=== PATIENT | male | born 1940 | race Caucasian/White ===

== ENCOUNTER 2017-05-03 13:00 | Inpatient (IN) | payer MEDICARE, BC ==
[~2017-05-03] VITALS: Ht 177.8 cm; Wt 45.8 kg
[2017-05-03 18:39] VITALS: BP 112/67
[2017-05-03] MEDS ORDERED: ACETAMINOPHEN 325 MG TABLET PO PRN (19:45)
[2017-05-03] MEDS ORDERED: HYDROcodone/APAP 5/325MG 1 TAB TABLET PO PRN (19:45)
[2017-05-03] MEDS ORDERED: AMIO200T2 PO (19:56)
[2017-05-03] MEDS ORDERED: BUDE10.2 IH (19:56)
[2017-05-03] MEDS ORDERED: METO25TA4 PO (19:56)
[2017-05-03] MEDS ORDERED: ASPI-630 PO (19:56)
[2017-05-03] MEDS ORDERED: TAMS0.4C2 PO (19:56)
[2017-05-03] MEDS ORDERED: GUAI600T47 PO (19:56)
[2017-05-03] MEDS ORDERED: WARF4TAB7 PO (19:56)
[2017-05-03] MEDS ORDERED: ATOR40TA59 PO (19:56)
[2017-05-03] MEDS ORDERED: ACET325T9 PO (19:56)
[2017-05-03] MEDS ORDERED: FINA5TAB4 PO (19:56)
[2017-05-03] MEDS ORDERED: ALBU0.63 NEB (19:56)
[2017-05-03] MEDS ORDERED: HYDR-2758 PO (19:56)
[2017-05-03] MEDS ORDERED: CIPR500S2 PO (19:56)
[2017-05-03] MEDS ORDERED: ALBUTEROL SULFATE 2.5 MG/3 ML NEBU. NEB PRN (20:15)
[2017-05-03] MEDS ORDERED: ATORVASTATIN CALCIUM 20 MG TABLET PO SCH (21:00)
[2017-05-03] MEDS ORDERED: NON FORMULARY ITEM (Albuterol Sulfate (Albuterol Sulfate Neb Soln) 1 VIAL) NEB SCH (21:00)
[2017-05-03] MEDS ORDERED: WARFARIN 4 MG TABLET. PO SCH (21:00)
[2017-05-03] MEDS ORDERED: NON FORMULARY ITEM (Budesonide/Formoterol Fumarate (Symbicort 160-4.5 Mcg Inhaler) 2 PUFF) IH SCH (21:00)
[2017-05-03] MEDS: METOPROLOL TART IMMED RELEASE 25 MG TABLET PO SCH (21:07)
[2017-05-03] MEDS: CIPROFLOXACIN HCL 500 MG TABLET PO SCH (21:07)
[2017-05-03 22:47] VITALS: BP 112/67
[2017-05-04] MEDS: ALBUTEROL SULFATE 2.5 MG/3 ML NEBU. NEB SCH ×3 (05:44→15:32)
[2017-05-04 05:52] VITALS: BP 104/62
[2017-05-04 06:35] LABS: BASO # 0.2 x10^3/uL (0.0-0.2); BASO % 1 % (0-3); EOS # 0.6 x10^3/uL (0.0-0.7); EOS % 4 % (0-3); HEMOGLOBIN 9.7 g/dL (13.0-17.5); LYMPH # 1.2 x10^3/uL (1.0-4.8); LYMPH % 7 % (24-48); MEAN CORPUSCULAR HEMOGLOBIN 30 pg (25-35); MEAN CORPUSCULAR HGB CONC 33 g/dL (31-37); MEAN CORPUSCULAR VOLUME 90 fL (79-100); MONO % 6 % (0-9); NEUT # 13.4 x10^3uL (1.8-7.7); NEUT % 82 % (31-73); PLATELET COUNT 394 x10^3/uL (140-400); RED CELL DISTRIBUTION WIDTH 15.5 % (11.5-14.5); WHITE BLOOD COUNT 16.5 x10^3/uL (4.0-11.0)
[2017-05-04 06:39] LABS: ALBUMIN 3.1 g/dL (3.4-5.0); ALBUMIN/GLOBULIN RATIO 0.9 (1.0-1.7); CALCIUM 9.6 mg/dL (8.5-10.1); CREATININE 1.3 mg/dL (0.7-1.3); POTASSIUM 3.4 mmol/L (3.5-5.1); TOTAL BILIRUBIN 0.5 mg/dL (0.2-1.0); TOTAL PROTEIN 6.5 g/dL (6.4-8.2)
[2017-05-04] MEDS ORDERED: BUDESONIDE 0.5 MG/2 ML NEBU NEB SCH (08:00)
[2017-05-04] MEDS ORDERED: ASPIRIN 81 MG TAB.CHEW PO SCH (09:00)
[2017-05-04] MEDS ORDERED: TAMSULOSIN 0.4 MG CAP.ER.24H. PO SCH (09:00)
[2017-05-04] MEDS ORDERED: AMIODARONE HCL 200 MG TABLET PO SCH (09:00)
[2017-05-04] MEDS ORDERED: FINASTERIDE 5 MG TABLET PO SCH (09:00)
[2017-05-04] MEDS: CIPROFLOXACIN HCL 500 MG TABLET PO SCH (09:06)
[2017-05-04] MEDS: METOPROLOL TART IMMED RELEASE 25 MG TABLET PO SCH (09:08)
[2017-05-04] MEDS ORDERED: IV NORMAL SALINE 1,000ML 1,000 ML IV SCH (14:30)
[2017-05-04] MEDS ORDERED: IV NORMAL SALINE 500ML 500 ML IV ONE (14:30)
[2017-05-04 15:32] VITALS: BP 115/52
[2017-05-04] MEDS ORDERED: WARFARIN 5 MG TABLET. PO SCH (16:00)
--- NOTE | 2017-05-04 17:20 | HP ---
ADMIT DATE: 05/04/2017 HISTORY OF PRESENT ILLNESS: The patient is a 76-year-old male patient, who apparently underwent 5-vessel coronary artery bypass graft surgery on 04/18/2017 at [facility]. His postoperative course was complicated by acute on chronic respiratory distress that required intubation. On 04/22/2017 bronchoscopy indicated right lower lobe bronchoalveolar lavage that grew pseudomonas and was treated for that with Zosyn. He also developed postoperative paroxysmal atrial fibrillation with acute diastolic left ventricular failure, requiring inotropes. The patient was extubated on 04/24/2017. He was transferred back to the floor on 04/26/2017. He finally passed the swallow evaluation. He was started on dysphagia 2 diet with thin liquids. He continued to complain of shortness of breath on exertion and he also has poor appetite and he was losing weight prior to this admission. When I saw him today, he was resting, slightly propped up in bed, clinically very dehydrated. He is also known to have benign prostatic hypertrophy with urinary retention, requiring indwelling Bowen catheter. PAST MEDICAL HISTORY: Significant for benign prostatic hypertrophy, chronic obstructive pulmonary disease, coronary artery disease involving his [place] coronary arteries with status post 5-vessel coronary artery bypass graft surgery. He is a lifelong smoker and quit before his most recent surgery. He has elevated PSA, essential hypertension, malnutrition, mixed hyperlipidemia, supraventricular tachycardia and tobacco abuse disorder. PAST SURGICAL HISTORY: Significant for coronary angiography with PCI, coronary artery bypass graft surgery. He has bilateral cataract extraction, multiple tooth extraction, prostate biopsy, and tympanostomy on the left side. FAMILY HISTORY: His father had Hodgkin's disease. Mother has coronary artery disease. Brother has diabetes. SOCIAL HISTORY: He is . Currently everyday smoker, he smokes half a pack a day and smoked for years. He never used smokeless tobacco. He does not drink alcohol or use any recreational drugs. ALLERGIES: He has no known drug allergies. MEDICATIONS: He is currently on following medications: Acetaminophen 650 mg every 4 hours, albuterol sulfate 0.63 mg in 3 mL by nebulizer 4 times a day, amiodarone 200 mg once a day, aspirin 81 mg once a day, atorvastatin calcium 40 mg at bedtime. He is on Symbicort 160/4.5 mcg inhaler 2 puffs twice a day, ciprofloxacin 500 mg twice a day, finasteride 5 mg once a day, guaifenesin for Mucinex 600 mg twice a day, hydrocodone/APAP 5/325 one tablet every 4 hours, metoprolol 25 mg twice a day, Flomax 0.4 mg at bedtime and warfarin 4 mg at bedtime. PHYSICAL EXAMINATION: GENERAL: When I examined him this afternoon, he was resting, slightly propped up in bed, in no apparent respiratory distress. He is pale, extremely cachectic, but not jaundiced or cyanosis. No lymphadenopathy, no thyromegaly, no jugular venous distention, no limb edema. VITAL SIGNS: His heart rate was 70, blood pressure was 104/62, temperature was 98.3, respiratory rate 20, and oxygen saturation was 97% on 2 liters of oxygen. HEAD, EYES, EARS, NOSE AND THROAT: Showed normocephalic, atraumatic. NECK: Supple. HEART: Showed normal first and second heart sounds with no gallop, rub or murmur. CHEST: Showed central trachea, equally reduced expansion, reduced air entry, vesicular breath sounds. No crepitation or rhonchi. ABDOMEN: Scaphoid, soft, nontender. No guarding or rigidity. No organomegaly. All hernial orifices intact. Bowel sounds normal. NEUROLOGIC: He was awake, alert, responding appropriately. All cranial nerves intact. EXTREMITIES: He moves extremities without difficulty, has marked muscle wasting and weakness. SKIN: Showed the surgical incision. The midline sternotomy scar is healing nicely with no redness, tenderness or discharge. The sites of vein harvest from the left lower extremity is healing nicely; however, multiple bruises on the medial aspect of left leg. His intake over the last 24 hours was 530, output was 600. LABORATORY DATA: His lab work this morning showed a white cell count of 16,500, hemoglobin 9.7, hematocrit 29, MCV 90 and platelet count of 394,000 with manual differential showed 82% polymorphs, 7% lymphocytes, 6% monocytes. His serum sodium was 141, potassium 3.4, chloride 103, bicarbonate 33, anion gap of 5, BUN 67, creatinine 1.3, estimated GFR was 54 mL per minute. His glucose was 109, calcium was 9.6. Total bilirubin, AST, ALT, alkaline phosphatase were normal. His total protein was 6.5, albumin 3.1. His prothrombin time was 19.9, INR of 1.9. SUMMARY: This is a 76-year-old male patient with known coronary artery disease for which he underwent 5-vessel coronary artery bypass graft surgery on 04/18/2017. His postoperative course was complicated by acute on chronic respiratory failure, requiring intubation bronchoalveolar lavage showed growth of Pseudomonas, treated with IV Zosyn. He has multiple other medical problems including benign prostatic hypertrophy for which he has an indwelling Bowen catheter. Chronic obstructive pulmonary disease for which he is now on oxygen. He has hypertension, mixed hyperlipidemia and malnutrition. In fact, his serum albumin is only 3.1. Comparing his labs, the patient definitely has extremely dehydrated. His BUN on 04/27/2017 was 40 and creatinine 0.6 and has risen to 67 and 1.3 respectively. His white cell count was normal at 9400 and now it is 16.5. He is both clinically and biochemically, definitely dehydrated. PLAN: My plan is to arrange for him to have a chest x-ray and will start to rehydrate him gently and we will monitor his labs closely. His INR is subtherapeutic, so I will increase his Coumadin to 5 mg and we will monitor his progress on a daily basis. Meanwhile, we will continue with physical and occupational therapy. REBECA BRAGA MD DR: MARS/radhika JOB#: [id number] / [id number]
--- NOTE | 2017-05-04 17:20 | RAD ---
AP portable chest radiograph 05/04/2017 Clinical history: Dyspnea on exertion. An AP portable digital radiograph of the chest was obtained. No previous studies are available for comparison. Patient status post CABG procedure. Cardiac silhouette is normal in size. The thoracic aorta is tortuous. Atherosclerotic calcification of the thoracic aorta is seen. Emphysematous changes are seen involving both longs. An area of probable scarring is seen along the right lower lobe. No area of consolidation is seen. No pneumothorax or pleural effusion is noted. There is diffuse osteopenia the visualized bony structures. Degenerative changes are seen along the thoracic spine. Impression: Emphysematous changes. No area of consolidation is seen.
--- NOTE | 2017-05-05 20:39 | PN ---
DATE: SUBJECTIVE: The patient is sitting comfortably in his recliner in no apparent distress. He is awake, alert and definitely looks better, has participated with physical and occupational therapy, had a shower, ate 100% his breakfast this morning. OBJECTIVE: GENERAL: On examining him, he looked somewhat pale, cachectic, but no jaundice, cyanosis, or thyromegaly. No jugular venous distention. No limb edema. VITAL SIGNS: His heart rate was 64, blood pressure 115/52, temperature was 98.1, respiratory rate was 24 and oxygen saturation was 96% on 2 L of oxygen by nasal cannula. HEAD, EYES, EARS, NOSE AND THROAT: Showed normocephalic, atraumatic. NECK: Supple. HEART: Showed normal first and second heart sounds with no gallop, rub or murmur. CHEST: Clear to auscultation. No crepitation or rhonchi. ABDOMEN: Scaphoid, soft, nontender. No guarding or rigidity. No organomegaly. Hernial orifices intact. Bowel sounds normal. NEUROLOGIC: He was definitely more awake, alert. All his cranial nerves are intact. He moves extremities without difficulty. He ambulates with a walker. His intake over the last 24 hours was 530, output was 600. LABORATORY DATA: This morning showed his white cell count was 12,500; hemoglobin 8.7; hematocrit 26; MCV 91; platelet count 343,000. Serum sodium was 143, potassium 4.1, chloride 109, bicarbonate 30, anion gap of 4, BUN 56, creatinine 1.1, estimated GFR was 65 mL per minute. His glucose was 98, calcium was 8.8. Total bilirubin and alkaline phosphatase normal. AST and ALT slightly elevated. His beta natriuretic peptide was 2424. Total protein was 5.6, albumin 2.6. His prothrombin time is 17.8. INR 1.7. ASSESSMENT: 1. Coronary artery disease involving [place] artery, status post 5-vessel coronary artery bypass graft. 2. Chronic obstructive pulmonary disease. 3. Benign prostatic hypertrophy. 4. Essential hypertension. 5. Mixed hyperlipidemia. 6. Tobacco abuse disorder. 7. Acute kidney injury. PLAN: My plan is to continue with IV fluid, continue with physical and occupational therapy. His prothrombin time and INR are subtherapeutic, we will adjust his Coumadin and we will decide on further management accordingly. REBECA BRAGA MD DR: Venita JOB#: [id number] / [id number]
== END 2017-05-04 16:05 | disposition short-term general hospital (02) | DRG 683 ==
LOC: LND 17:30
PROVIDERS: ADMIT Internal Medicine; ATTEND Internal Medicine
DX: N17.9 Acute kidney failure, unspecified (principal); E46 Unspecified protein-calorie malnutrition; J96.10 Chronic respiratory failure, unspecified whether with hypoxia or hypercapnia; I48.0 Paroxysmal atrial fibrillation; J44.9 Chronic obstructive pulmonary disease, unspecified; I50.30 Unspecified diastolic (congestive) heart failure; I11.0 Hypertensive heart disease with heart failure; E78.2 Mixed hyperlipidemia; Z68.1 Body mass index [BMI] 19.9 or less, adult; E86.0 Dehydration; F17.210 Nicotine dependence, cigarettes, uncomplicated; I25.10 Atherosclerotic heart disease of native coronary artery without angina pectoris; N40.1 Benign prostatic hyperplasia with lower urinary tract symptoms; R33.8 Other retention of urine; Z80.7 Family history of other malignant neoplasms of lymphoid, hematopoietic and related tissues; Z82.49 Family history of ischemic heart disease and other diseases of the circulatory system; Z83.3 Family history of diabetes mellitus; Z95.1 Presence of aortocoronary bypass graft; Z98.41 Cataract extraction status, right eye; Z98.42 Cataract extraction status, left eye
CPT/HCPCS: 36415; 71010; 80053; 85025; 85610; 94640; 94760; J7613; J7626; 97535

== ENCOUNTER 2017-05-04 16:06 | Inpatient (IN) | payer MEDICARE, BC ==
[~2017-05-04] VITALS: Ht 177.8 cm; Wt 50.5 kg
[2017-05-04 15:30] VITALS: BP 115/52
[~2017-05-04 16:06] MED LIST: ACET325T9 PO; ALBU0.63 NEB; AMIO200T2 PO; ASPI-630 PO; ATOR40TA59 PO; BUDE10.2 IH; CIPR500S2 PO; FINA5TAB4 PO; GUAI600T47 PO; HYDR-2758 PO; METO25TA4 PO; TAMS0.4C2 PO; WARF4TAB7 PO
[2017-05-04] MEDS ORDERED: IV NORMAL SALINE 500ML 500 ML IV ONE (16:20)
[2017-05-04] MEDS ORDERED: ACETAMINOPHEN 325 MG TABLET PO PRN (17:15)
[2017-05-04] MEDS ORDERED: HYDROcodone/APAP 5/325MG 1 TAB TABLET PO PRN (17:15)
[2017-05-04] MEDS ORDERED: ALBUTEROL SULFATE 2.5 MG/3 ML NEBU. NEB PRN (17:15)
[2017-05-04] MEDS ORDERED: WARFARIN 5 MG TABLET. PO SCH (18:15)
[2017-05-04] MEDS: IV NORMAL SALINE 1,000ML 1,000 ML IV SCH (18:22)
[2017-05-04 18:33] VITALS: BP 137/56
[2017-05-04] MEDS ORDERED: POTASSIUM CHLORIDE 20 MEQ TABLET.ER. PO ONE (19:15)
[2017-05-04 20:25] VITALS: BP 130/54
[2017-05-04] MEDS: METOPROLOL TART IMMED RELEASE 25 MG TABLET PO SCH (20:25)
[2017-05-04] MEDS: ATORVASTATIN CALCIUM 20 MG TABLET PO SCH (20:25)
[2017-05-04] MEDS: CIPROFLOXACIN HCL 500 MG TABLET PO SCH (20:25)
[2017-05-04] MEDS ORDERED: NON FORMULARY ITEM (Budesonide/Formoterol Fumarate (Symbicort 160-4.5 Mcg Inhaler) 2 PUFF) IH SCH (21:00)
[2017-05-04] MEDS ORDERED: NON FORMULARY ITEM (Albuterol Sulfate (Albuterol Sulfate Neb Soln) 1 VIAL) NEB SCH (21:00)
[2017-05-04] MEDS: BUDESONIDE 0.5 MG/2 ML NEBU NEB SCH (22:03)
[2017-05-04] MEDS: ALBUTEROL SULFATE 2.5 MG/3 ML NEBU. NEB SCH (22:03)
[2017-05-04 23:15] VITALS: BP 112/50
[2017-05-05 03:30] VITALS: BP 123/52
[2017-05-05] MEDS: IV NORMAL SALINE 1,000ML 1,000 ML IV SCH ×2 (05:39→18:18)
[2017-05-05 05:43] VITALS: BP 127/52
[2017-05-05] MEDS: ALBUTEROL SULFATE 2.5 MG/3 ML NEBU. NEB SCH ×4 (05:57→20:31)
[2017-05-05 06:42] LABS: HEMOGLOBIN 8.7 g/dL (13.0-17.5); RED BLOOD COUNT 2.85 x10^6/uL (4.30-5.70); RED CELL DISTRIBUTION WIDTH 15.9 % (11.5-14.5); WHITE BLOOD COUNT 12.5 x10^3/uL (4.0-11.0)
[2017-05-05 06:46] LABS: ALBUMIN 2.6 g/dL (3.4-5.0); ALBUMIN/GLOBULIN RATIO 0.9 (1.0-1.7); C REACTIVE PROTEIN 5.8 mg/L (0-3.3); CALCIUM 8.8 mg/dL (8.5-10.1); CREATININE 1.1 mg/dL (0.7-1.3); GFR 65.4; POTASSIUM 4.1 mmol/L (3.5-5.1); TOTAL BILIRUBIN 0.3 mg/dL (0.2-1.0); TOTAL PROTEIN 5.6 g/dL (6.4-8.2)
[2017-05-05] MEDS: CIPROFLOXACIN HCL 500 MG TABLET PO SCH ×2 (08:26→20:34)
[2017-05-05] MEDS: ASPIRIN 81 MG TAB.CHEW PO SCH (08:26)
[2017-05-05] MEDS: METOPROLOL TART IMMED RELEASE 25 MG TABLET PO SCH ×2 (08:27→20:34)
[2017-05-05] MEDS: TAMSULOSIN 0.4 MG CAP.ER.24H. PO SCH (08:27)
[2017-05-05] MEDS: FINASTERIDE 5 MG TABLET PO SCH (08:27)
[2017-05-05] MEDS: AMIODARONE HCL 200 MG TABLET PO SCH (08:27)
[2017-05-05] MEDS ORDERED: TAMSULOSIN 0.4 MG CAP.ER.24H. PO SCH (09:00)
[2017-05-05 11:02] VITALS: BP 116/56
[2017-05-05] MEDS: BUDESONIDE 0.5 MG/2 ML NEBU NEB SCH ×2 (11:04→20:31)
[2017-05-05 14:43] VITALS: BP 136/66
[2017-05-05] MEDS ORDERED: WARFARIN 5 MG TABLET. PO SCH (16:00)
[2017-05-05] MEDS: WARFARIN 6 MG TABLET. PO SCH (16:37)
[2017-05-05 18:40] VITALS: BP 124/63
[2017-05-05] MEDS: ATORVASTATIN CALCIUM 20 MG TABLET PO SCH (20:35)
[2017-05-05 22:45] VITALS: BP 114/54
[2017-05-06] MEDS: IV NORMAL SALINE 1,000ML 1,000 ML IV SCH (05:23)
[2017-05-06 05:35] VITALS: BP 135/62
[2017-05-06] MEDS: ALBUTEROL SULFATE 2.5 MG/3 ML NEBU. NEB SCH ×4 (05:36→21:05)
[2017-05-06 07:56] LABS: CALCIUM 8.5 mg/dL (8.5-10.1); CREATININE 0.9 mg/dL (0.7-1.3); GFR 82.5; MAGNESIUM 1.7 mg/dL (1.8-2.4)
[2017-05-06] MEDS: AMIODARONE HCL 200 MG TABLET PO SCH (08:22)
[2017-05-06] MEDS: TAMSULOSIN 0.4 MG CAP.ER.24H. PO SCH (08:22)
[2017-05-06] MEDS: CIPROFLOXACIN HCL 500 MG TABLET PO SCH ×2 (08:22→20:30)
[2017-05-06] MEDS: METOPROLOL TART IMMED RELEASE 25 MG TABLET PO SCH ×2 (08:23→20:30)
[2017-05-06] MEDS: FINASTERIDE 5 MG TABLET PO SCH (08:23)
[2017-05-06] MEDS: ASPIRIN 81 MG TAB.CHEW PO SCH (08:23)
[2017-05-06 09:59] LABS: FECAL OB PT POSITIVE (NEG)
[2017-05-06 11:11] VITALS: BP 102/44
[2017-05-06] MEDS ORDERED: BUDESONIDE 0.5 MG/2 ML NEBU ONE (11:38)
[2017-05-06] MEDS: BUDESONIDE 0.5 MG/2 ML NEBU NEB SCH ×2 (11:58→21:05)
[2017-05-06 12:07] VITALS: BP 116/58
[2017-05-06 15:00] LABS: HEMATOCRIT 26.5 % (39.0-53.0); HEMOGLOBIN 8.6 g/dL (13.0-17.5); RED BLOOD COUNT 2.87 x10^6/uL (4.30-5.70); RED CELL DISTRIBUTION WIDTH 16.4 % (11.5-14.5); WHITE BLOOD COUNT 11.3 x10^3/uL (4.0-11.0)
[2017-05-06 15:22] VITALS: BP 123/64
[2017-05-06] MEDS: WARFARIN 6 MG TABLET. PO SCH (16:40)
[2017-05-06 20:15] VITALS: BP 120/62
[2017-05-06] MEDS: ATORVASTATIN CALCIUM 20 MG TABLET PO SCH (20:30)
[2017-05-06 23:04] VITALS: BP 137/68
[2017-05-07] MEDS: ALBUTEROL SULFATE 2.5 MG/3 ML NEBU. NEB SCH ×4 (05:27→22:11)
[2017-05-07 05:48] VITALS: BP 152/72
[2017-05-07 06:53] LABS: HEMATOCRIT 27.9 % (39.0-53.0); RED BLOOD COUNT 2.99 x10^6/uL (4.30-5.70); RED CELL DISTRIBUTION WIDTH 16.9 % (11.5-14.5); WHITE BLOOD COUNT 11.3 x10^3/uL (4.0-11.0)
[2017-05-07 06:57] LABS: CALCIUM 8.7 mg/dL (8.5-10.1); CREATININE 0.8 mg/dL (0.7-1.3); GFR 94.5; POTASSIUM 4.6 mmol/L (3.5-5.1)
[2017-05-07] MEDS: FINASTERIDE 5 MG TABLET PO SCH (07:58)
[2017-05-07] MEDS: CIPROFLOXACIN HCL 500 MG TABLET PO SCH ×2 (07:59→20:21)
[2017-05-07] MEDS: TAMSULOSIN 0.4 MG CAP.ER.24H. PO SCH (07:59)
[2017-05-07] MEDS: AMIODARONE HCL 200 MG TABLET PO SCH (07:59)
[2017-05-07] MEDS: METOPROLOL TART IMMED RELEASE 25 MG TABLET PO SCH ×2 (07:59→20:21)
[2017-05-07] MEDS: ASPIRIN 81 MG TAB.CHEW PO SCH (07:59)
[2017-05-07 11:02] VITALS: BP 131/66
[2017-05-07] MEDS: BUDESONIDE 0.5 MG/2 ML NEBU NEB SCH ×2 (11:04→22:11)
[2017-05-07] MEDS: WARFARIN 6 MG TABLET. PO SCH (14:55)
[2017-05-07 15:00] VITALS: BP 123/55
[2017-05-07 19:02] VITALS: BP 137/67
[2017-05-07] MEDS: ATORVASTATIN CALCIUM 20 MG TABLET PO SCH (20:20)
[2017-05-07 23:02] VITALS: BP 133/67
[2017-05-08 05:13] VITALS: BP 123/63
[2017-05-08] MEDS: ALBUTEROL SULFATE 2.5 MG/3 ML NEBU. NEB SCH ×4 (05:28→21:44)
[2017-05-08 06:57] LABS: BASO # 0.1 x10^3/uL (0.0-0.2); BASO % 1 % (0-3); EOS # 0.4 x10^3/uL (0.0-0.7); EOS % 5 % (0-3); HEMATOCRIT 27.7 % (39.0-53.0); LYMPH # 1.1 x10^3/uL (1.0-4.8); LYMPH % 11 % (24-48); MEAN CORPUSCULAR HEMOGLOBIN 31 pg (25-35); MEAN CORPUSCULAR HGB CONC 33 g/dL (31-37); MEAN CORPUSCULAR VOLUME 95 fL (79-100); MONO # 0.9 x10^3/uL (0.0-1.1); MONO % 9 % (0-9); NEUT # 7.4 x10^3uL (1.8-7.7); NEUT % 75 % (31-73); PLATELET COUNT 312 x10^3/uL (140-400); RED BLOOD COUNT 2.93 x10^6/uL (4.30-5.70); RED CELL DISTRIBUTION WIDTH 17.2 % (11.5-14.5)
[2017-05-08 08:30] VITALS: BP 129/68
[2017-05-08] MEDS: CIPROFLOXACIN HCL 500 MG TABLET PO SCH ×2 (09:18→19:52)
[2017-05-08] MEDS: ASPIRIN 81 MG TAB.CHEW PO SCH (09:18)
[2017-05-08] MEDS: TAMSULOSIN 0.4 MG CAP.ER.24H. PO SCH (09:19)
[2017-05-08] MEDS: AMIODARONE HCL 200 MG TABLET PO SCH (09:19)
[2017-05-08] MEDS: METOPROLOL TART IMMED RELEASE 25 MG TABLET PO SCH ×2 (09:20→19:53)
[2017-05-08] MEDS: FINASTERIDE 5 MG TABLET PO SCH (09:20)
--- NOTE | 2017-05-08 10:55 | PN ---
DATE: 05/07/2017 SUBJECTIVE: The patient is resting, slightly propped up in his bed, in no apparent distress. He continued to complain of generally being weak, although he seemed to be much better than before. Denied any chest pain, shortness of breath, cough, phlegm. OBJECTIVE: GENERAL: On examining him, he looked well and was clearly in no apparent respiratory distress, pale. ____ no jugular venous distention. No limb edema. VITAL SIGNS: Heart rate was 67, blood pressure 123/55, temperature was 97.6, respiratory rate was 14 and oxygen saturation was 96% on 1 liter of oxygen by nasal cannula. HEAD, EYES, EARS, NOSE AND THROAT: Showed normocephalic, atraumatic. NECK: Supple. HEART: Showed normal first and second heart sounds with no gallop, rub or murmur. CHEST: Showed central trachea, equally reduced expansion, reduced air entry, ____. No crepitation or rhonchi. ABDOMEN: Scaphoid, soft, nontender. NEUROLOGIC: He is awake, alert, responding appropriately. Cranial nerves intact. He moves extremities without difficulty, ambulates with a walker with minimal assistance. His intake over the last 24 hours was 2300, output was 1215. LABORATORY DATA: As of this morning, his white cell count is down to 11,000, hemoglobin 9, hematocrit 27.9, MCV 94 and platelet count 323,000. Serum sodium 144, potassium 4.6, chloride 110, bicarbonate 30, anion gap of 4, BUN 34, creatinine 0.8, estimated GFR was 94 mL per minute. Glucose was 100, calcium was 8.7, and magnesium was 1.7. His prothrombin time was ____, INR of 3. ASSESSMENT: 1. Coronary artery disease involving [place] arteries, status post 5-vessel coronary artery bypass graft surgery. 2. Chronic obstructive pulmonary disease. 3. Benign prostatic hypertrophy. 4. Essential hypertension. 5. Mixed hyperlipidemia. 6. Tobacco abuse. 7. Acute kidney injury, improving. PLAN: To continue with current medication. I held his Coumadin as his INR is supratherapeutic, I will repeat his prothrombin time tomorrow. Meanwhile, we will continue with Physical and Occupational Therapy. REBECA BRAGA MD DR: MARS/radhika JOB#: [id number] / [id number]
[2017-05-08] MEDS: BUDESONIDE 0.5 MG/2 ML NEBU NEB SCH ×2 (10:58→21:43)
[2017-05-08 11:30] VITALS: BP 113/55
[2017-05-08 15:30] VITALS: BP 113/57
[2017-05-08] MEDS: WARFARIN 6 MG TABLET. PO SCH (16:00)
[2017-05-08 18:59] VITALS: BP 117/55
[2017-05-08] MEDS: ATORVASTATIN CALCIUM 20 MG TABLET PO SCH (19:53)
[2017-05-08 22:37] VITALS: BP 105/55
--- NOTE | 2017-05-09 02:10 | PN ---
DATE: 05/08/2017 SUBJECTIVE: The patient is sitting comfortably in his chair, eating lunch comfortably in no apparent distress. On questioning him, he continues to complain of being weak; however, denied any chest pain, denied any shortness of breath, orthopnea or paroxysmal nocturnal dyspnea. His appetite has improved and now he is eating his food, eats more than 75% of his meals, walks with a walker with assistance. PHYSICAL EXAMINATION: GENERAL: When I examined him, he was pale, extremely cachectic, but no jaundice, cyanosis, or thyromegaly. No jugular venous distention. No limb edema. VITAL SIGNS: His heart rate was 67, blood pressure 113/55, temperature was 98.4, respiratory rate was 16, and oxygen saturation was 93% on 2 liters of oxygen by nasal cannula. HEAD, EYES, EARS, NOSE AND THROAT: Showed normocephalic, atraumatic. NECK: Supple. HEART: Showed normal first and second heart sounds. No gallop, rub or murmur. CHEST: Clear to auscultation. No crepitation or rhonchi. ABDOMEN: Scaphoid, soft, nontender. NEUROLOGIC: He was awake, alert, responding appropriately. Cranial nerves are intact. He moves extremities without difficulty, ambulates with a walker with standby assist. He continued to be weak and unsteady. His intake over the last 24 hours was 1100, output 675. LABORATORY DATA: His prothrombin time this morning was 28.9, INR of 2.9. As of yesterday, his BUN is 34, creatinine 0.8, hemoglobin 9, hematocrit 27 with normal white cell count and platelets. ASSESSMENT: 1. Coronary artery disease involving [place] arteries, status post 5-vessel coronary artery bypass graft surgery. 2. Chronic obstructive pulmonary disease. 3. Benign prostatic hypertrophy. 4. Essential hypertension. 5. Mixed hyperlipidemia. 6. Tobacco abuse disorder. 7. Acute kidney injury, improving. 8. Marked debility and deconditioning. PLAN: To continue with current medications. His INR is supratherapeutic, so I will hold his Coumadin today. I will repeat his lab work tomorrow. Meanwhile, we will continue with physical and occupational therapy. REBECA BRAGA MD DR: MARS/radhika JOB#: [id number] / [id number]
[2017-05-09 04:15] VITALS: BP 144/69
[2017-05-09] MEDS: ALBUTEROL SULFATE 2.5 MG/3 ML NEBU. NEB SCH ×4 (05:21→20:56)
[2017-05-09 06:35] LABS: ALBUMIN 2.3 g/dL (3.4-5.0); ALBUMIN/GLOBULIN RATIO 0.7 (1.0-1.7); CALCIUM 8.7 mg/dL (8.5-10.1); CREATININE 0.9 mg/dL (0.7-1.3); GFR 82.5; POTASSIUM 4.3 mmol/L (3.5-5.1); TOTAL BILIRUBIN 0.4 mg/dL (0.2-1.0); TOTAL PROTEIN 5.5 g/dL (6.4-8.2)
[2017-05-09 06:36] LABS: HEMOGLOBIN 9.2 g/dL (13.0-17.5); RED BLOOD COUNT 3.01 x10^6/uL (4.30-5.70); RED CELL DISTRIBUTION WIDTH 17.1 % (11.5-14.5); WHITE BLOOD COUNT 9.2 x10^3/uL (4.0-11.0)
[2017-05-09] MEDS: AMIODARONE HCL 200 MG TABLET PO SCH (08:42)
[2017-05-09] MEDS: ASPIRIN 81 MG TAB.CHEW PO SCH (08:42)
[2017-05-09] MEDS: METOPROLOL TART IMMED RELEASE 25 MG TABLET PO SCH ×2 (08:42→20:23)
[2017-05-09] MEDS: TAMSULOSIN 0.4 MG CAP.ER.24H. PO SCH (08:42)
[2017-05-09] MEDS: CIPROFLOXACIN HCL 500 MG TABLET PO SCH (08:42)
[2017-05-09] MEDS: FINASTERIDE 5 MG TABLET PO SCH (08:43)
[2017-05-09] MEDS: BUDESONIDE 0.5 MG/2 ML NEBU NEB SCH ×2 (11:14→20:56)
[2017-05-09 13:00] VITALS: BP 114/55
[2017-05-09] MEDS ORDERED: WARFARIN 4 MG TABLET. PO SCH (16:00)
[2017-05-09 17:45] VITALS: BP 118/63
[2017-05-09] MEDS: ATORVASTATIN CALCIUM 20 MG TABLET PO SCH (20:23)
[2017-05-09] MEDS ORDERED: TAMSULOSIN 0.4 MG CAP.ER.24H. PO SCH (21:00)
--- NOTE | 2017-05-10 01:16 | PN ---
DATE: 05/09/2017 SUBJECTIVE: The patient is sitting comfortably in his wheelchair in no apparent distress. On questioning him, he denied any complaints other than being weak and nursing staff did not voice any concerns and stated that he has an uneventful night. His appetite is good. He is eating most of his meals. His lab work showed that he is much improved. OBJECTIVE: GENERAL: When I examined him, he looked pale, cachectic, but not jaundiced, cyanosis, lymphadenopathy, or thyromegaly. No jugular venous distension. No limb edema. VITAL SIGNS: Her heart rate was 60, blood pressure 114/55, temperature was 97.8, respiratory rate 20, and oxygen saturation was 96% on 2 liters of oxygen. HEENT: Showed normocephalic, atraumatic. NECK: Supple. HEART: Showed normal first and second heart sounds with no gallop, rub or murmur. CHEST: Shows central trachea, equally reduced expansion, reduced air entry, vesicular breath sounds. No crepitation or rhonchi. ABDOMEN: Scaphoid, soft, nontender. NEUROLOGIC: He was awake, alert, responding appropriately. Cranial nerves intact. He moves extremities without difficulty, although he has severe muscle wasting and weakness. His body mass index only 15.8 kilograms per square meter. His intake over the last 24 hours was 1200, output was 1075. LABORATORY DATA: Her lab work this morning showed a white cell count 9200, hemoglobin 9.2, hematocrit 28, MCV 93, and platelet count 294,000. Her chemistry showed a serum sodium 143, potassium 4.3, chloride 109, bicarbonate 31, anion gap of 3, BUN 34, creatinine 0.9, estimated GFR was 82 mL per minute. Her glucose was 114. Calcium was 8.7. Total bilirubin, AST, ALT, alkaline phosphatase were normal. Total protein 5.5, albumin 2.3. His prothrombin time was 20.7, INR of 2. ASSESSMENT: 1. Coronary artery disease, status post 5-vessel coronary artery bypass graft surgery. 2. Severe chronic obstructive pulmonary disease. 3. Benign prostatic hypertrophy with bladder outlet obstruction, requiring indwelling Bowen catheter. 4. Essential hypertension. 5. Hyperlipidemia. 6. Tobacco abuse disorder. 7. Acute kidney injury, improving, marked debility and deconditioning. 8. Severe protein calorie malnutrition with serum albumin of 2.3; cachexia, marked weight loss, the patient weighs only 110 pounds with a body mass index of 15.8. PLAN: To continue with his current medications. I did cut back his Coumadin to 4. Meanwhile, we will continue with nutritional support as well as physical and occupational therapy. REBECA BRAGA MD DR: MARS/radhika JOB#: [id number] / [id number]
[2017-05-10 05:35] VITALS: BP 116/61
[2017-05-10] MEDS: ALBUTEROL SULFATE 2.5 MG/3 ML NEBU. NEB SCH ×2 (05:49→12:03)
[2017-05-10 06:15] LABS: BASO # 0.1 x10^3/uL (0.0-0.2); BASO % 1 % (0-3); EOS # 0.4 x10^3/uL (0.0-0.7); EOS % 5 % (0-3); HEMATOCRIT 25.8 % (39.0-53.0); HEMOGLOBIN 8.5 g/dL (13.0-17.5); LYMPH # 0.9 x10^3/uL (1.0-4.8); LYMPH % 12 % (24-48); MEAN CORPUSCULAR HEMOGLOBIN 30 pg (25-35); MEAN CORPUSCULAR HGB CONC 33 g/dL (31-37); MEAN CORPUSCULAR VOLUME 92 fL (79-100); MONO # 0.7 x10^3/uL (0.0-1.1); MONO % 9 % (0-9); NEUT # 5.3 x10^3uL (1.8-7.7); NEUT % 73 % (31-73); PLATELET COUNT 283 x10^3/uL (140-400); RED BLOOD COUNT 2.81 x10^6/uL (4.30-5.70); RED CELL DISTRIBUTION WIDTH 16.6 % (11.5-14.5); WHITE BLOOD COUNT 7.3 x10^3/uL (4.0-11.0)
[2017-05-10 06:29] LABS: ALBUMIN 2.2 g/dL (3.4-5.0); ALBUMIN/GLOBULIN RATIO 0.7 (1.0-1.7); CALCIUM 8.5 mg/dL (8.5-10.1); CREATININE 0.9 mg/dL (0.7-1.3); GFR 82.5; MAGNESIUM 1.9 mg/dL (1.8-2.4); POTASSIUM 4.5 mmol/L (3.5-5.1); TOTAL BILIRUBIN 0.3 mg/dL (0.2-1.0); TOTAL PROTEIN 5.2 g/dL (6.4-8.2)
[2017-05-10] MEDS ORDERED: PANTOPRAZOLE 40 MG TABLET. PO SCH (08:15)
[2017-05-10] MEDS: ASPIRIN 81 MG TAB.CHEW PO SCH (09:00)
[2017-05-10] MEDS: AMIODARONE HCL 200 MG TABLET PO SCH (09:02)
[2017-05-10 09:03] VITALS: BP 116/61
[2017-05-10] MEDS: FINASTERIDE 5 MG TABLET PO SCH (09:03)
[2017-05-10] MEDS: METOPROLOL TART IMMED RELEASE 25 MG TABLET PO SCH (09:03)
[2017-05-10] MEDS ORDERED: PANT40TA5 PO (10:51)
[2017-05-10] MEDS ORDERED: TAMS0.4C97 PO (10:51)
[2017-05-10] MEDS ORDERED: WARF4TAB68 PO (10:51)
[2017-05-10] MEDS: BUDESONIDE 0.5 MG/2 ML NEBU NEB SCH (12:03)
--- NOTE | 2017-05-10 13:57 | PDOC3 ---
Discharge Summary Visit Information Date of Admission: May 04, 2017 Date of Discharge: May 10, 2017 Final Diagnosis Patient Name: Otis Weinstein Unit Number: [id number] Date of : 1940 Patient Status: Discharged Inpatient Attending Doctor: Lala Barillas MD Discharge Summary Discharge Summary Visit Information Date of Admission: May 04, 2017 Date of Discharge: May 10, 2017 Final Diagnosis Coronary artery disease, status post 5-vessel coronary artery bypass graft surgery. 2. Severe chronic obstructive pulmonary disease. 3. Benign prostatic hypertrophy with bladder outlet obstruction, requiring indwelling Bowen catheter. 4. Essential hypertension. 5. Hyperlipidemia. 6. Tobacco abuse disorder. 7. Acute kidney injury, improving, marked debility and deconditioning. 8. Severe protein calorie malnutrition with serum albumin of 2.3; cachexia, marked weight loss, the patient weighs only 110 pounds with a body mass index of 15.8. 9.weight loss 10. heme positive stool 11. anticoagulant therapy.-subtherapeutic and supratherapeutic 12. cardiac debility 13. weakness 14. dysphagia Problems: Brief Hospital Course Allergies Allergies Coded Allergies Type Severity Reaction Last Updated Verified No Known Drug Allergies 05/03/17 No Vital Signs Vital Signs Date Time Temp Pulse Resp B/P (MAP) Pulse Ox O2 Delivery O2 Flow Rate FiO2 05/04/17 15:32 96 Nasal Cannula 2.0 05/04/17 15:32 98.1 64 24 115/52 (73) Brief Hospital Course Mr. Weinstein is a 76 old male who was transferred to [place] rehab unit after undergoing a 5 vessel bypass. He also had at [facility] Diasotlic heart failure and acute respiratory failure. whe he arrived at [place] he was found to have IRVING with a markedly elevated bun and creatine compared to old labs. He was therefore admitted to the medical floor where he was found to be severely dehydrated. He was hydrated and his kidney function improved. His coumadin was adjusted per INR values. He was stable to be transferrd to the [facility] Bed unit on 05/10. Discharge Information Condition at Discharge: Improved Disposition/Orders: Other (Swing bed.) Dischare Medications Current Medications Acetaminophen (Tylenol) 325 mg PRN Q4HRS PRN PO PAIN / TEMP; Start 05/03/17 at 19:45; Stop 05/04/17 at 16:06; Status DC Amiodarone HCl (Cordarone) 200 mg DAILY PO Last administered on 05/04/17 09:07 ; Start 05/04/17 at 09:00; Stop 05/04/17 at 16:06; Status DC Aspirin (Children'S Aspirin) 81 mg DAILY PO Last administered on 05/04/17 09: 06; Start 05/04/17 at 09:00; Stop 05/04/17 at 16:06; Status DC Finasteride (Proscar) 5 mg DAILY PO Last administered on 05/04/17 09:09; Start 05/04/17 at 09:00; Stop 05/04/17 at 16:06; Status DC Guaifenesin (Mucinex Er) 600 mg PRN BID PRN PO CONGESTION; Start 05/03/17 at 19 :45; Stop 05/04/17 at 16:06; Status DC Acetaminophen/ Hydrocodone Bitart (Lortab 5/325) 1 tab PRN Q4HRS PRN PO PAIN; Start 05/03/17 at 19:45; Stop 05/04/17 at 16:06; Status DC Metoprolol Tartrate (Lopressor) 25 mg BID PO Last administered on 05/04/17 09: 08; Start 05/03/17 at 21:00; Stop 05/04/17 at 16:06; Status DC Tamsulosin HCl (Flomax) 0.4 mg DAILY PO Last administered on 05/04/17 09:07; Start 05/04/17 at 09:00; Stop 05/04/17 at 16:06; Status DC Warfarin Sodium (Coumadin) 4 mg DAILY16 PO ; Start 05/03/17 at 21:00; Stop 05/04 at 14:24; Status DC Non-Formulary Medication 1 vial QID NEB ; Start 05/03/17 at 21:00; Status UNV Atorvastatin Calcium (Lipitor) 40 mg QHS PO Last administered on 05/03/17 21: 06; Start 05/03/17 at 21:00; Stop 05/04/17 at 16:06; Status DC Non-Formulary Medication 2 puff BID IH ; Start 05/03/17 at 21:00; Status UNV Ciprofloxacin (Cipro) 500 mg BID PO Last administered on 05/04/17 09:06; Start 05/03/17 at 21:00; Stop 05/04/17 at 16:06; Status DC Warfarin Sodium (Coumadin Per Physician) 1 each PRN DAILY PRN MC SEE COMMENTS; Start 05/03/17 at 20:15; Stop 05/04/17 at 16:06; Status DC Albuterol Sulfate (Ventolin) 2.5 mg RTQID NEB Last administered on 05/04/17 15 :32; Start 05/04/17 at 08:00; Stop 05/04/17 at 16:06; Status DC Albuterol Sulfate (Ventolin) 2.5 mg PRN Q6HRS PRN NEB SHORTNESS OF BREATH Last administered on 05/03/17 21:44; Start 05/03/17 at 20:15; Stop 05/04/17 at 16:06 ; Status DC Budesonide (Pulmicort) 0.5 mg RTBID NEB Last administered on 05/04/17 09:26; Start 05/04/17 at 08:00; Stop 05/04/17 at 16:06; Status DC Warfarin Sodium (Coumadin) 5 mg DAILY16 PO ; Start 05/04/17 at 16:00; Stop 05/04 at 16:06; Status DC Sodium Chloride 1,000 ml @ 75 mls/hr [id number] IV ; Start 05/04/17 at 14:30; Stop 05/04/17 at 16:06; Status DC Sodium Chloride 500 ml @ 0 mls/hr 1X ONCE IV ; Start 05/04/17 at 14:30; Stop at 14:47; Status DC Active Scripts Active Coumadin (Warfarin Sodium) 4 Mg Tablet 4 Mg PO DAILY16 30 Days Flomax (Tamsulosin Hcl) 0.4 Mg Cap.er.24h 0.8 Mg PO QHS 30 Days Pantoprazole Sodium 40 Mg Tablet.dr 40 Mg PO DAILYAC 30 Days Reported Metoprolol Tartrate 25 Mg Tablet 1 Tab PO BID Hydrocodone-Apap 5-325 (Hydrocodone Bit/Acetaminophen) 1 Each Tablet 1 Tab PO PRN Q4HRS PRN Mucinex (Guaifenesin) 600 Mg Tablet.er 1 Tab PO PRN BID PRN Finasteride 5 Mg Tablet 1 Tab PO DAILY Symbicort 160-4.5 Mcg Inhaler (Budesonide/Formoterol Fumarate) 10.2 Gm Hfa.aer.ad 2 Puff IH BID Aspirin 81 Mg Tab.chew 81 Mg PO DAILY Amiodarone Hcl 200 Mg Tablet 1 Tab PO DAILY Albuterol Sulfate Neb Soln (Albuterol Sulfate) 0.63 Mg/3 Ml Vial.neb 1 Vial NEB QID Tylenol (Acetaminophen) 325 Mg Tablet 1 Tab PO PRN Q4HRS Patient Instructions Patient Instuctions Transfer to Swing Bed. JESSICA DOVER DO Problems: Brief Hospital Course Allergies Allergies Coded Allergies Type Severity Reaction Last Updated Verified No Known Drug Allergies 05/03/17 No Vital Signs Vital Signs Date Time Temp Pulse Resp B/P (MAP) Pulse Ox O2 Delivery O2 Flow Rate FiO2 05/10/17 12:09 92 Nasal Cannula 2.0 05/10/17 09:03 60 116/61 05/10/17 05:35 98.7 20 Lab Results Laboratory Tests Test 05/09/17 06:03 05/10/17 06:01 White Blood Count 9.2 x10^3/uL (4.0-11.0) 7.3 x10^3/uL (4.0-11.0) Red Blood Count 3.01 x10^6/uL (4.30-5.70) 2.81 x10^6/uL (4.30-5.70) Hemoglobin 9.2 g/dL (13.0-17.5) 8.5 g/dL (13.0-17.5) Hematocrit 28.0 % (39.0-53.0) 25.8 % (39.0-53.0) Mean Corpuscular Volume 93 fL (79-100) 92 fL (79-100) Mean Corpuscular Hemoglobin 31 pg (25-35) 30 pg (25-35) Mean Corpuscular Hemoglobin Concent 33 g/dL (31-37) 33 g/dL (31-37) Red Cell Distribution Width 17.1 % (11.5-14.5) 16.6 % (11.5-14.5) Platelet Count 294 x10^3/uL (140-400) 283 x10^3/uL (140-400) Prothrombin Time 20.7 SEC (9.4-11.4) 17.7 SEC (9.4-11.4) Prothromb Time International Ratio 2.0 (0.9-1.1) 1.7 (0.9-1.1) Sodium Level 143 mmol/L (136-145) 143 mmol/L (136-145) Potassium Level 4.3 mmol/L (3.5-5.1) 4.5 mmol/L (3.5-5.1) Chloride Level 109 mmol/L (98-107) 109 mmol/L (98-107) Carbon Dioxide Level 31 mmol/L (21-32) 32 mmol/L (21-32) Anion Gap 3 (6-14) 2 (6-14) Blood Urea Nitrogen 34 mg/dL (8-26) 33 mg/dL (8-26) Creatinine 0.9 mg/dL (0.7-1.3) 0.9 mg/dL (0.7-1.3) Estimated GFR (Cockcroft-Gault) 82.5 82.5 BUN/Creatinine Ratio 38 (6-20) 37 (6-20) Glucose Level 114 mg/dL (70-99) 91 mg/dL (70-99) Calcium Level 8.7 mg/dL (8.5-10.1) 8.5 mg/dL (8.5-10.1) Total Bilirubin 0.4 mg/dL (0.2-1.0) 0.3 mg/dL (0.2-1.0) Aspartate Amino Transf (AST/SGOT) 32 U/L (15-37) 29 U/L (15-37) Alanine Aminotransferase (ALT/SGPT) 51 U/L (16-63) 53 U/L (16-63) Alkaline Phosphatase 105 U/L (46-116) 103 U/L (46-116) Total Protein 5.5 g/dL (6.4-8.2) 5.2 g/dL (6.4-8.2) Albumin 2.3 g/dL (3.4-5.0) 2.2 g/dL (3.4-5.0) Albumin/Globulin Ratio 0.7 (1.0-1.7) 0.7 (1.0-1.7) Neutrophils (%) (Auto) 73 % (31-73) Lymphocytes (%) (Auto) 12 % (24-48) Monocytes (%) (Auto) 9 % (0-9) Eosinophils (%) (Auto) 5 % (0-3) Basophils (%) (Auto) 1 % (0-3) Neutrophils # (Auto) 5.3 x10^3uL (1.8-7.7) Lymphocytes # (Auto) 0.9 x10^3/uL (1.0-4.8) Monocytes # (Auto) 0.7 x10^3/uL (0.0-1.1) Eosinophils # (Auto) 0.4 x10^3/uL (0.0-0.7) Basophils # (Auto) 0.1 x10^3/uL (0.0-0.2) Magnesium Level 1.9 mg/dL (1.8-2.4) Brief Hospital Course Mr. Weinstein is a 76 old [sex] who presented with [ ] Patient Name: Otis Weinstein Unit Number: [id number] Date of : 1940 Patient Status: Discharged Inpatient Attending Doctor: Lala Barillas MD Discharge Summary Discharge Summary Visit Information Date of Admission: May 04, 2017 D Patient Name: Otis Weinstein Unit Number: [id number] Date of : 1940 Patient Status: Discharged Inpatient Attending Doctor: Lala Barillas MD Discharge Summary Discharge Summary Visit Information Date of Admission: May 04, 2017 Date of Discharge: May 10, 2017 Final Diagnosis Coronary artery disease, status post 5-vessel coronary artery bypass graft surgery. 2. Severe chronic obstructive pulmonary disease. 3. Benign prostatic hypertrophy with bladder outlet obstruction, requiring indwelling Bowen catheter. 4. Essential hypertension. 5. Hyperlipidemia. 6. Tobacco abuse disorder. 7. Acute kidney injury, improving, marked debility and deconditioning. 8. Severe protein calorie malnutrition with serum albumin of 2.3; cachexia, marked weight loss, the patient weighs only 110 pounds with a body mass index of 15.8. 9.weight loss 10. heme positive stool 11. anticoagulant therapy.-subtherapeutic and supratherapeutic 12. cardiac debility 13. weakness 14. dysphagia Problems: Brief Hospital Course Allergies Allergies Coded Allergies Type Severity Reaction Last Updated Verified No Known Drug Allergies 05/03/17 No Vital Signs Vital Signs Date Time Temp Pulse Resp B/P (MAP) Pulse Ox O2 Delivery O2 Flow Rate FiO2 05/04/17 15:32 96 Nasal Cannula 2.0 05/04/17 15:32 98.1 64 24 115/52 (73) Brief Hospital Course Mr. Weinstein is a 76 old male who was transferred to [place] rehab unit after undergoing a 5 vessel bypass. He also had at [facility] Diasotlic heart failure and acute respiratory failure. whe he arrived at [place] he was found to have IRVING with a markedly elevated bun and creatine compared to old labs. He was therefore admitted to the medical floor where he was found to be severely dehydrated. He was hydrated and his kidney function improved. His coumadin was adjusted per INR values. He was stable to be transferrd to the [address] unit on 05/10. Discharge Information Condition at Discharge: Improved Disposition/Orders: Other (Swing bed.) Dischare Medications Current Medications Acetaminophen (Tylenol) 325 mg PRN Q4HRS PRN PO PAIN / TEMP; Start 05/03/17 at 19:45; Stop 05/04/17 at 16:06; Status DC Amiodarone HCl (Cordarone) 200 mg DAILY PO Last administered on 05/04/17 09:07 ; Start 05/04/17 at 09:00; Stop 05/04/17 at 16:06; Status DC Aspirin (Children'S Aspirin) 81 mg DAILY PO Last administered on 05/04/17 09: 06; Start 05/04/17 at 09:00; Stop 05/04/17 at 16:06; Status DC Finasteride (Proscar) 5 mg DAILY PO Last administered on 05/04/17 09:09; Start 05/04/17 at 09:00; Stop 05/04/17 at 16:06; Status DC Guaifenesin (Mucinex Er) 600 mg PRN BID PRN PO CONGESTION; Start 05/03/17 at 19 :45; Stop 05/04/17 at 16:06; Status DC Acetaminophen/ Hydrocodone Bitart (Lortab 5/325) 1 tab PRN Q4HRS PRN PO PAIN; Start 05/03/17 at 19:45; Stop 05/04/17 at 16:06; Status DC Metoprolol Tartrate (Lopressor) 25 mg BID PO Last administered on 05/04/17 09: 08; Start 05/03/17 at 21:00; Stop 05/04/17 at 16:06; Status DC Tamsulosin HCl (Flomax) 0.4 mg DAILY PO Last administered on 05/04/17 09:07; Start 05/04/17 at 09:00; Stop 05/04/17 at 16:06; Status DC Warfarin Sodium (Coumadin) 4 mg DAILY16 PO ; Start 05/03/17 at 21:00; Stop 05/04 at 14:24; Status DC Non-Formulary Medication 1 vial QID NEB ; Start 05/03/17 at 21:00; Status UNV Atorvastatin Calcium (Lipitor) 40 mg QHS PO Last administered on 05/03/17 21: 06; Start 05/03/17 at 21:00; Stop 05/04/17 at 16:06; Status DC Non-Formulary Medication 2 puff BID IH ; Start 05/03/17 at 21:00; Status UNV Ciprofloxacin (Cipro) 500 mg BID PO Last administered on 05/04/17 09:06; Start 05/03/17 at 21:00; Stop 05/04/17 at 16:06; Status DC Warfarin Sodium (Coumadin Per Physician) 1 each PRN DAILY PRN MC SEE COMMENTS; Start 05/03/17 at 20:15; Stop 05/04/17 at 16:06; Status DC Albuterol Sulfate (Ventolin) 2.5 mg RTQID NEB Last administered on 05/04/17 15 :32; Start 05/04/17 at 08:00; Stop 05/04/17 at 16:06; Status DC Albuterol Sulfate (Ventolin) 2.5 mg PRN Q6HRS PRN NEB SHORTNESS OF BREATH Last administered on 05/03/17 21:44; Start 05/03/17 at 20:15; Stop 05/04/17 at 16:06 ; Status DC Budesonide (Pulmicort) 0.5 mg RTBID NEB Last administered on 05/04/17 09:26; Start 05/04/17 at 08:00; Stop 05/04/17 at 16:06; Status DC Warfarin Sodium (Coumadin) 5 mg DAILY16 PO ; Start 05/04/17 at 16:00; Stop 05/04 at 16:06; Status DC Sodium Chloride 1,000 ml @ 75 mls/hr [id number] IV ; Start 05/04/17 at 14:30; Stop 05/04/17 at 16:06; Status DC Sodium Chloride 500 ml @ 0 mls/hr 1X ONCE IV ; Start 05/04/17 at 14:30; Stop at 14:47; Status DC Active Scripts Active Coumadin (Warfarin Sodium) 4 Mg Tablet 4 Mg PO DAILY16 30 Days Flomax (Tamsulosin Hcl) 0.4 Mg Cap.er.24h 0.8 Mg PO QHS 30 Days Pantoprazole Sodium 40 Mg Tablet.dr 40 Mg PO DAILYAC 30 Days Reported Metoprolol Tartrate 25 Mg Tablet 1 Tab PO BID Hydrocodone-Apap 5-325 (Hydrocodone Bit/Acetaminophen) 1 Each Tablet 1 Tab PO PRN Q4HRS PRN Mucinex (Guaifenesin) 600 Mg Tablet.er 1 Tab PO PRN BID PRN Finasteride 5 Mg Tablet 1 Tab PO DAILY Symbicort 160-4.5 Mcg Inhaler (Budesonide/Formoterol Fumarate) 10.2 Gm Hfa.aer.ad 2 Puff IH BID Aspirin 81 Mg Tab.chew 81 Mg PO DAILY Amiodarone Hcl 200 Mg Tablet 1 Tab PO DAILY Albuterol Sulfate Neb Soln (Albuterol Sulfate) 0.63 Mg/3 Ml Vial.neb 1 Vial NEB QID Tylenol (Acetaminophen) 325 Mg Tablet 1 Tab PO PRN Q4HRS Patient Instructions Patient Instuctions Transfer to [facility] Bed. JESSICA DOVER: Brief Hospital Course Allergies Allergies Coded Allergies Type Severity Reaction Last Updated Verified No Known Drug Allergies 05/03/17 No Vital Signs Vital Signs Date Time Temp Pulse Resp B/P (MAP) Pulse Ox O2 Delivery O2 Flow Rate FiO2 05/04/17 15:32 96 Nasal Cannula 2.0 05/04/17 15:32 98.1 64 24 115/52 (73) Brief Hospital Course Mr. Weinstein is a 76 old male who was transferred to [place] rehab unit after undergoing a 5 vessel bypass. He also had at [facility] Diasotlic heart failure and acute respiratory failure. whe he arrived at [facility] he was found to have IRIVNG with a markedly elevated bun and creatine compared to old labs. He was therefore admitted to the medical floor where he was found to be severely dehydrated. He was hydrated and his kidney function improved. His coumadin was adjusted per INR values. He was stable to be transferrd to the [address] unit on 05/10. Discharge Information Condition at Discharge: Improved Disposition/Orders: Other (Swing bed.) Dischare Medications Current Medications Acetaminophen (Tylenol) 325 mg PRN Q4HRS PRN PO PAIN / TEMP; Start 05/03/17 at 19:45; Stop 05/04/17 at 16:06; Status DC Amiodarone HCl (Cordarone) 200 mg DAILY PO Last administered on 05/04/17 09:07 ; Start 05/04/17 at 09:00; Stop 05/04/17 at 16:06; Status DC Aspirin (Children'S Aspirin) 81 mg DAILY PO Last administered on 05/04/17 09: 06; Start 05/04/17 at 09:00; Stop 05/04/17 at 16:06; Status DC Finasteride (Proscar) 5 mg DAILY PO Last administered on 05/04/17 09:09; Start 05/04/17 at 09:00; Stop 05/04/17 at 16:06; Status DC Guaifenesin (Mucinex Er) 600 mg PRN BID PRN PO CONGESTION; Start 05/03/17 at 19 :45; Stop 05/04/17 at 16:06; Status DC Acetaminophen/ Hydrocodone Bitart (Lortab 5/325) 1 tab PRN Q4HRS PRN PO PAIN; Start 05/03/17 at 19:45; Stop 05/04/17 at 16:06; Status DC Metoprolol Tartrate (Lopressor) 25 mg BID PO Last administered on 05/04/17 09: 08; Start 05/03/17 at 21:00; Stop 05/04/17 at 16:06; Status DC Tamsulosin HCl (Flomax) 0.4 mg DAILY PO Last administered on 05/04/17 09:07; Start 05/04/17 at 09:00; Stop 05/04/17 at 16:06; Status DC Warfarin Sodium (Coumadin) 4 mg DAILY16 PO ; Start 05/03/17 at 21:00; Stop 05/04 at 14:24; Status DC Non-Formulary Medication 1 vial QID NEB ; Start 05/03/17 at 21:00; Status UNV Atorvastatin Calcium (Lipitor) 40 mg QHS PO Last administered on 05/03/17 21: 06; Start 05/03/17 at 21:00; Stop 05/04/17 at 16:06; Status DC Non-Formulary Medication 2 puff BID IH ; Start 05/03/17 at 21:00; Status UNV Ciprofloxacin (Cipro) 500 mg BID PO Last administered on 05/04/17 09:06; Start 05/03/17 at 21:00; Stop 05/04/17 at 16:06; Status DC Warfarin Sodium (Coumadin Per Physician) 1 each PRN DAILY PRN MC SEE COMMENTS; Start 05/03/17 at 20:15; Stop 05/04/17 at 16:06; Status DC Albuterol Sulfate (Ventolin) 2.5 mg RTQID NEB Last administered on 05/04/17 15 :32; Start 05/04/17 at 08:00; Stop 05/04/17 at 16:06; Status DC Albuterol Sulfate (Ventolin) 2.5 mg PRN Q6HRS PRN NEB SHORTNESS OF BREATH Last administered on 05/03/17 21:44; Start 05/03/17 at 20:15; Stop 05/04/17 at 16:06 ; Status DC Budesonide (Pulmicort) 0.5 mg RTBID NEB Last administered on 05/04/17 09:26; Start 05/04/17 at 08:00; Stop 05/04/17 at 16:06; Status DC Warfarin Sodium (Coumadin) 5 mg DAILY16 PO ; Start 05/04/17 at 16:00; Stop 05/04 at 16:06; Status DC Sodium Chloride 1,000 ml @ 75 mls/hr [id number] IV ; Start 05/04/17 at 14:30; Stop 05/04/17 at 16:06; Status DC Sodium Chloride 500 ml @ 0 mls/hr 1X ONCE IV ; Start 05/04/17 at 14:30; Stop at 14:47; Status DC Active Scripts Active Coumadin (Warfarin Sodium) 4 Mg Tablet 4 Mg PO DAILY16 30 Days Flomax (Tamsulosin Hcl) 0.4 Mg Cap.er.24h 0.8 Mg PO QHS 30 Days Pantoprazole Sodium 40 Mg Tablet.dr 40 Mg PO DAILYAC 30 Days Reported Metoprolol Tartrate 25 Mg Tablet 1 Tab PO BID Hydrocodone-Apap 5-325 (Hydrocodone Bit/Acetaminophen) 1 Each Tablet 1 Tab PO PRN Q4HRS PRN Mucinex (Guaifenesin) 600 Mg Tablet.er 1 Tab PO PRN BID PRN Finasteride 5 Mg Tablet 1 Tab PO DAILY Symbicort 160-4.5 Mcg Inhaler (Budesonide/Formoterol Fumarate) 10.2 Gm Hfa.aer.ad 2 Puff IH BID Aspirin 81 Mg Tab.chew 81 Mg PO DAILY Amiodarone Hcl 200 Mg Tablet 1 Tab PO DAILY Albuterol Sulfate Neb Soln (Albuterol Sulfate) 0.63 Mg/3 Ml Vial.neb 1 Vial NEB QID Tylenol (Acetaminophen) 325 Mg Tablet 1 Tab PO PRN Q4HRS Patient Instructions Patient Instuctions Transfer to Swing Bed. JESSICA DOVER DO Discharge Information Dischare Medications Current Medications Sodium Chloride 500 ml @ 0 mls/hr 1X ONCE IV Last administered on 05/04/17 16 :20; Start 05/04/17 at 16:20; Stop 05/04/17 at 16:21; Status DC Sodium Chloride 1,000 ml @ 75 mls/hr [id number] IV Last administered on 05/06/17 05:23; Start 05/04/17 at 16:20; Stop 05/06/17 at 17:42; Status DC Acetaminophen (Tylenol) 325 mg PRN Q4HRS PRN PO PAIN; Start 05/04/17 at 17:15; Stop 05/10/17 at 12:14; Status DC Amiodarone HCl (Cordarone) 200 mg DAILY PO Last administered on 05/10/17 09:02 ; Start 05/05/17 at 09:00; Stop 05/10/17 at 12:14; Status DC Aspirin (Children'S Aspirin) 81 mg DAILY PO Last administered on 05/10/17 09:00 ; Start 05/05/17 at 09:00; Stop 05/10/17 at 12:14; Status DC Finasteride (Proscar) 5 mg DAILY PO Last administered on 05/10/17 09:03; Start 05/05/17 at 09:00; Stop 05/10/17 at 12:14; Status DC Guaifenesin (Mucinex Er) 600 mg PRN BID PRN PO CONGESTION; Start 05/04/17 at 17 :15; Stop 05/10/17 at 12:14; Status DC Acetaminophen/ Hydrocodone Bitart (Lortab 5/325) 1 tab PRN Q4HRS PRN PO PAIN; Start 05/04/17 at 17:15; Stop 05/10/17 at 12:14; Status DC Metoprolol Tartrate (Lopressor) 25 mg BID PO Last administered on 05/10/17 09: 03; Start 05/04/17 at 21:00; Stop 05/10/17 at 12:14; Status DC Tamsulosin HCl (Flomax) 0.4 mg DAILY PO Last administered on 05/09/17 08:42; Start 05/05/17 at 09:00; Stop 05/09/17 at 14:09; Status DC Non-Formulary Medication 1 vial QID NEB ; Start 05/04/17 at 21:00; Stop at 21:00; Status DC Atorvastatin Calcium (Lipitor) 40 mg QHS PO Last administered on 05/09/17 20:23 ; Start 05/04/17 at 21:00; Stop 05/10/17 at 12:14; Status DC Non-Formulary Medication 2 puff BID IH ; Start 05/04/17 at 21:00; Stop 05/04/17 at 21:00; Status DC Ciprofloxacin (Cipro) 500 mg BID PO Last administered on 05/09/17 08:42; Start 05/04/17 at 21:00; Stop 05/09/17 at 14:09; Status DC Warfarin Sodium (Coumadin Per Physician) 1 each PRN DAILY PRN MC SEE COMMENTS; Start 05/04/17 at 17:15; Stop 05/10/17 at 08:14; Status DC Warfarin Sodium (Coumadin) 5 mg DAILY16 PO ; Start 05/05/17 at 16:00; Stop 05/05 at 16:00; Status DC Tamsulosin HCl (Flomax) 0.4 mg DAILY PO ; Start 05/05/17 at 09:00; Stop at 09:00; Status DC Albuterol Sulfate (Ventolin) 2.5 mg PRN Q6HRS PRN NEB SHORTNESS OF BREATH; Start 05/04/17 at 17:15; Stop 05/10/17 at 12:14; Status DC Albuterol Sulfate (Ventolin) 2.5 mg RTQID NEB Last administered on 05/10/17 12: 03; Start 05/04/17 at 20:00; Stop 05/10/17 at 12:14; Status DC Budesonide (Pulmicort) 0.5 mg RTBID NEB Last administered on 05/10/17 12:03; Start 05/04/17 at 20:00; Stop 05/10/17 at 12:14; Status DC Warfarin Sodium (Coumadin) 5 mg DAILY16 PO Last administered on 05/04/17 18:22 ; Start 05/04/17 at 18:15; Stop 05/05/17 at 12:16; Status DC Potassium Chloride (Klor-Con) 40 meq 1X ONCE PO Last administered on 20:26; Start 05/04/17 at 19:15; Stop 05/04/17 at 19:16; Status DC Warfarin Sodium (Coumadin) 6 mg DAILY16 PO Last administered on 05/06/17 16:40 ; Start 05/05/17 at 16:00; Stop 05/09/17 at 14:10; Status DC Budesonide (Pulmicort) 0.5 mg STK-MED ONCE .ROUTE ; Start 05/06/17 at 11:38; Stop 05/06/17 at 11:39; Status DC Warfarin Sodium (Coumadin) 4 mg DAILY16 PO Last administered on 05/09/17 17:00 ; Start 05/09/17 at 16:00; Stop 05/10/17 at 12:14; Status DC Tamsulosin HCl (Flomax) 0.8 mg QHS PO Last administered on 05/09/17 20:23; Start 05/09/17 at 21:00; Stop 05/10/17 at 12:14; Status DC Warfarin Sodium (Coumadin Per Pharmacy) 1 each PRN DAILY PRN MC SEE COMMENTS; Start 05/10/17 at 07:45; Stop 05/10/17 at 08:13; Status DC Pantoprazole Sodium (Protonix) 40 mg DAILYAC PO Last administered on 05/10/17 09:00; Start 05/10/17 at 08:15; Stop 05/10/17 at 12:14; Status DC Warfarin Sodium (Coumadin Per Pharmacy) 1 each PRN DAILY PRN MC SEE COMMENTS Last administered on 05/10/17 08:24; Start 05/10/17 at 08:15; Stop 05/10/17 at 12: 14; Status DC Active Scripts Active Coumadin (Warfarin Sodium) 4 Mg Tablet 4 Mg PO DAILY16 30 Days Flomax (Tamsulosin Hcl) 0.4 Mg Cap.er.24h 0.8 Mg PO QHS 30 Days Pantoprazole Sodium 40 Mg Tablet.dr 40 Mg PO DAILYAC 30 Days Reported Metoprolol Tartrate 25 Mg Tablet 1 Tab PO BID Hydrocodone-Apap 5-325 (Hydrocodone Bit/Acetaminophen) 1 Each Tablet 1 Tab PO PRN Q4HRS PRN Mucinex (Guaifenesin) 600 Mg Tablet.er 1 Tab PO PRN BID PRN Finasteride 5 Mg Tablet 1 Tab PO DAILY Symbicort 160-4.5 Mcg Inhaler (Budesonide/Formoterol Fumarate) 10.2 Gm Hfa.aer.ad 2 Puff IH BID Aspirin 81 Mg Tab.chew 81 Mg PO DAILY Amiodarone Hcl 200 Mg Tablet 1 Tab PO DAILY Albuterol Sulfate Neb Soln (Albuterol Sulfate) 0.63 Mg/3 Ml Vial.neb 1 Vial NEB QID Tylenol (Acetaminophen) 325 Mg Tablet 1 Tab PO PRN Q4HRS JESSICA DOVER DO May 10, 2017 13:57
== END 2017-05-10 12:13 | disposition swing bed (61) | DRG 682 ==
LOC: LND 16:06
PROVIDERS: ADMIT Internal Medicine; ATTEND Internal Medicine
DX: N17.9 Acute kidney failure, unspecified (principal); E43 Unspecified severe protein-calorie malnutrition; J44.9 Chronic obstructive pulmonary disease, unspecified; I11.0 Hypertensive heart disease with heart failure; I50.30 Unspecified diastolic (congestive) heart failure; N13.8 Other obstructive and reflux uropathy; R13.10 Dysphagia, unspecified; E86.0 Dehydration; Z68.1 Body mass index [BMI] 19.9 or less, adult; E78.2 Mixed hyperlipidemia; I25.10 Atherosclerotic heart disease of native coronary artery without angina pectoris; N40.1 Benign prostatic hyperplasia with lower urinary tract symptoms; Z95.1 Presence of aortocoronary bypass graft
CPT/HCPCS: 36415; 80048; 80053; 82274; 82607; 83540; 83550; 83735; 83880; 85025; 85027; 85610; 85651; 86140; 87324; 94640; J7040; J7613; J7626; 92610; 97110; 97530; J7030

== ENCOUNTER 2017-05-10 09:14 | Inpatient (IN) | payer MEDICARE, BC ==
[~2017-05-10] VITALS: Ht 177.8 cm; Wt 52.7 kg
[2017-05-10] MEDS ORDERED: TAMS0.4C97 PO (10:51)
[2017-05-10] MEDS ORDERED: WARF4TAB68 PO (10:51)
[2017-05-10] MEDS ORDERED: PANT40TA5 PO (10:51)
[2017-05-10 13:27] VITALS: BP 101/53
[2017-05-10 13:30] VITALS: BP 101/53
[2017-05-10] MEDS ORDERED: HYDROcodone/APAP 5/325MG 1 TAB TABLET PO PRN (14:15)
[2017-05-10] MEDS ORDERED: ACETAMINOPHEN 325 MG TABLET PO PRN (14:15)
[2017-05-10] MEDS ORDERED: ALBUTEROL SULFATE 2.5 MG/3 ML NEBU. NEB PRN ×2 (14:45→15:15)
[2017-05-10] MEDS ORDERED: WARFARIN 4 MG TABLET. PO SCH (16:00)
[2017-05-10] MEDS: ALBUTEROL SULFATE 2.5 MG/3 ML NEBU. NEB SCH ×2 (16:45→22:28)
[2017-05-10] MEDS ORDERED: NON FORMULARY ITEM (Albuterol Sulfate (Albuterol Sulfate Neb Soln) 1 VIAL) NEB SCH (17:00)
[2017-05-10 18:48] VITALS: BP 109/54
[2017-05-10] MEDS: ATORVASTATIN CALCIUM 20 MG TABLET PO SCH (20:04)
[2017-05-10] MEDS: TAMSULOSIN 0.4 MG CAP.ER.24H. PO SCH (20:05)
[2017-05-10] MEDS: METOPROLOL TART IMMED RELEASE 25 MG TABLET PO SCH (20:05)
[2017-05-10 20:29] VITALS: BP 130/66
[2017-05-10] MEDS ORDERED: NON FORMULARY ITEM (Budesonide/Formoterol Fumarate (Symbicort 160-4.5 Mcg Inhaler) 2 PUFF) IH SCH (21:00)
[2017-05-10] MEDS: BUDESONIDE 0.5 MG/2 ML NEBU NEB SCH (22:28)
[2017-05-11 04:11] VITALS: BP 138/65
[2017-05-11] MEDS: ALBUTEROL SULFATE 2.5 MG/3 ML NEBU. NEB SCH ×4 (05:47→20:16)
[2017-05-11] MEDS: PANTOPRAZOLE 40 MG TABLET. PO SCH (07:56)
[2017-05-11] MEDS: FINASTERIDE 5 MG TABLET PO SCH (07:57)
[2017-05-11] MEDS: METOPROLOL TART IMMED RELEASE 25 MG TABLET PO SCH ×2 (07:58→20:24)
[2017-05-11] MEDS: AMIODARONE HCL 200 MG TABLET PO SCH (07:59)
[2017-05-11] MEDS: ASPIRIN 81 MG TAB.CHEW PO SCH (07:59)
[2017-05-11] MEDS ORDERED: IV NORMAL SALINE 500ML 500 ML IV ONE (08:00)
[2017-05-11] MEDS: BUDESONIDE 0.5 MG/2 ML NEBU NEB SCH ×2 (09:28→20:16)
[2017-05-11 15:10] VITALS: BP 147/69
[2017-05-11] MEDS ORDERED: WARFARIN 2 MG TABLET. PO ONE (16:00)
[2017-05-11] MEDS ORDERED: WARFARIN 2.5 MG TABLET. PO ONE (16:00)
[2017-05-11 19:15] VITALS: BP 144/68
--- NOTE | 2017-05-11 19:49 | PDOC ---
Exam Evens Demential Exam: Evens Note: Please also refer to the separate dictated note~for this date of service dictated separately.~Patient seen individually. Discussed the patient with Nursing staff reviewed the chart.~Reviewed interim history and current functioning. Reviewed vital signs,~Labs/ Radiology~and current medications noted below. Continue current treatment with the changes noted in the dictated addendum note Assessment: Vital Signs: Vital Signs Date Time Temp Pulse Resp B/P (MAP) Pulse Ox O2 Delivery O2 Flow Rate FiO2 05/11/17 19:15 97.8 80 16 144/68 (93) 96 Nasal Cannula 2.5 I&O Intake and Output 05/12/17 07:00 Intake Total 1700 ml Output Total 400 ml Balance 1300 ml Intake Oral 1200 ml Other 500 ml Output Urine Total 400 ml Labs: Laboratory Tests Test 05/11/17 05:52 Prothrombin Time 18.9 SEC (9.4-11.4) H Prothrombin Time INR 1.8 (0.9-1.1) H Current Medications: Meds: Current Medications Acetaminophen (Tylenol) 325 mg PRN Q4HRS PRN PO PAIN; Start 05/10/17 at 14:15 Amiodarone HCl (Cordarone) 200 mg DAILY PO Last administered on 05/11/17 07:59 ; Start 05/11/17 at 09:00 Aspirin (Children'S Aspirin) 81 mg DAILY PO Last administered on 05/11/17 07:59 ; Start 05/11/17 at 09:00 Finasteride (Proscar) 5 mg DAILY PO Last administered on 05/11/17 07:57; Start 05/11/17 at 09:00 Guaifenesin (Mucinex Er) 600 mg PRN BID PRN PO CONGESTION; Start 05/10/17 at 14: 15 Acetaminophen/ Hydrocodone Bitart (Lortab 5/325) 1 tab PRN Q4HRS PRN PO PAIN; Start 05/10/17 at 14:15 Metoprolol Tartrate (Lopressor) 25 mg BID PO Last administered on 05/11/17 07: 58; Start 05/10/17 at 21:00 Pantoprazole Sodium (Protonix) 40 mg DAILYAC PO Last administered on 05/11/17 07:56; Start 05/11/17 at 07:30 Tamsulosin HCl (Flomax) 0.8 mg QHS PO Last administered on 05/10/17 20:05; Start 05/10/17 at 21:00 Warfarin Sodium (Coumadin) 4 mg DAILY16 PO Last administered on 05/10/17 16:14 ; Start 05/10/17 at 16:00; Stop 05/11/17 at 10:47; Status DC Non-Formulary Medication 1 vial QID NEB ; Start 05/10/17 at 17:00; Status UNV Non-Formulary Medication 2 puff BID IH ; Start 05/10/17 at 21:00; Stop 05/10/17 at 21:00; Status DC Warfarin Sodium (Coumadin Per Pharmacy) 1 each PRN DAILY PRN MC SEE COMMENTS Last administered on 05/11/17 10:42; Start 05/10/17 at 14:30 Albuterol Sulfate (Ventolin) 2.5 mg PRN Q6HRS PRN NEB SHORTNESS OF BREATH; Start 05/10/17 at 14:45; Status UNV Albuterol Sulfate (Ventolin) 2.5 mg RTQID NEB Last administered on 05/11/17 15: 33; Start 05/10/17 at 16:00 Budesonide (Pulmicort) 0.5 mg RTBID NEB Last administered on 05/11/17 09:28; Start 05/10/17 at 20:00 Atorvastatin Calcium (Lipitor) 40 mg QHS PO Last administered on 05/10/17 20:04 ; Start 05/10/17 at 21:00 Albuterol Sulfate (Ventolin) 2.5 mg PRN Q6HRS PRN NEB SHORTNESS OF BREATH; Start 05/10/17 at 15:15 Sodium Chloride 500 ml @ 0 mls/hr 1X ONCE IV Last administered on 05/11/17 10: 05; Start 05/11/17 at 08:00; Stop 05/11/17 at 08:01; Status DC Warfarin Sodium (Coumadin) 2.5 mg 1X WARF ONCE PO Last administered on 16:02; Start 05/11/17 at 16:00; Stop 05/11/17 at 16:01; Status DC Warfarin Sodium (Coumadin) 2 mg 1X WARF ONCE PO Last administered on 05/11/17 16:02; Start 05/11/17 at 16:00; Stop 05/11/17 at 16:01; Status DC Bupropion HCl (Wellbutrin Xl) 150 mg DAILY PO ; Start 05/12/17 at 09:00 Mirtazapine (Remeron) 7.5 mg QHS PO ; Start 05/11/17 at 21:00 Active Scripts Active Coumadin (Warfarin Sodium) 4 Mg Tablet 4 Mg PO DAILY16 30 Days Flomax (Tamsulosin Hcl) 0.4 Mg Cap.er.24h 0.8 Mg PO QHS 30 Days Pantoprazole Sodium 40 Mg Tablet.dr 40 Mg PO DAILYAC 30 Days Reported Metoprolol Tartrate 25 Mg Tablet 1 Tab PO BID Hydrocodone-Apap 5-325 (Hydrocodone Bit/Acetaminophen) 1 Each Tablet 1 Tab PO PRN Q4HRS PRN Mucinex (Guaifenesin) 600 Mg Tablet.er 1 Tab PO PRN BID PRN Finasteride 5 Mg Tablet 1 Tab PO DAILY Symbicort 160-4.5 Mcg Inhaler (Budesonide/Formoterol Fumarate) 10.2 Gm Hfa.aer.ad 2 Puff IH BID Aspirin 81 Mg Tab.chew 81 Mg PO DAILY Amiodarone Hcl 200 Mg Tablet 1 Tab PO DAILY Albuterol Sulfate Neb Soln (Albuterol Sulfate) 0.63 Mg/3 Ml Vial.neb 1 Vial NEB QID Tylenol (Acetaminophen) 325 Mg Tablet 1 Tab PO PRN Q4HRS Diagnosis: Problems: (1) Anxiety disorder (2) Major depressive disorder, recurrent episode VERONICA BUTLER MD May 11, 2017 19:49
[2017-05-11] MEDS: MIRTAZAPINE 7.5 MG TABLET. PO SCH (20:23)
[2017-05-11] MEDS: TAMSULOSIN 0.4 MG CAP.ER.24H. PO SCH (20:24)
[2017-05-11] MEDS: ATORVASTATIN CALCIUM 20 MG TABLET PO SCH (20:24)
--- NOTE | 2017-05-12 01:59 | CONS ---
DATE OF CONSULTATION: 05/11/2017 PSYCHIATRIC CONSULTATION IDENTIFYING DATA: The patient is a 76-year-old male seen in bed 131, on the shelter unit at [facility] for a psychiatric consult requested by Dr. Barillas/Dr. Whiting on account of the patient's symptoms of depression, status post surgical 5-vessel coronary artery bypass graft on 04/18/2017. Reportedly, after that incident patient had to be intubated on day 4 and was intubated for about 2 days with pleural effusion received paracenteses. It was noted in the records at [facility] that he had a flat affect and nursing staff has observed him to have no energy and motivation, apathy and he admits to being depressed. I have been asked to consult, make recommendations for his mood symptoms to help with his recovery/rehabilitation. CHIEF COMPLAINT: "Yes, I am depressed. I have been through lot." HISTORY OF PRESENT ILLNESS: The patient was admitted on 05/04/2017 to the medical floor for 6 days for of severe dehydration, acute kidney injury, which were treated and he was then medically stable and transferred to rehabilitation. He has undergone 5-vessel coronary artery bypass graft surgery on 04/18/2017 at [facility]. As noted above, his postop course was complicated by [id number] respiratory distress requiring intubation. He also developed PAT with acute left ventricular failure. He appears depressed, withdrawn, a motivated apathetic. No clear psychotic symptoms, suicidal or homicidal ideation. Cognitively, he has been intact. PAST PSYCHIATRIC HISTORY: Noncontributory other than the fact that he states he used to drink alcohol during the leiva, but had no problems with it. MEDICAL HISTORY: In addition to above, he has a history of BPH, COPD, coronary artery disease status post coronary artery bypass graft. He is a lifelong smoker, quit before his surgery has elevated PSA, hypertension, malnutrition, hyperlipidemia, supraventricular tachycardia, tobacco use disorder. PAST SURGICAL HISTORY: Coronary angiography with PCI, coronary artery bypass graft, bilateral cataract extraction, multiple tooth extraction, prostate biopsy, tympanostomy on the left side. FAMILY HISTORY: Hodgkin's disease in his father, mother with coronary artery disease. Brother with diabetes. SOCIAL HISTORY: The patient is and lives at home with his . He used to work at the [employer] on [place] before he retired. He has 2 adult children, 1 in ____ and the other in [facility]. No drug abuse history. ALLERGIES: Negative. CURRENT PSYCHOTROPICS: Negative. MENTAL STATUS EXAM: The patient was seen individually evening of 05/11/2017. He is lying in bed, fairly quiet, withdrawn, has had to be pushed but the nursing staff repeatedly during the day to be involved in activities. He has a poor appetite. Speech moderate latency, often responses monosyllabic. Mood is depressed. Affect is mood congruent. No psychotic symptoms, suicidal or homicidal ideation. Intellect average. Insight good. Judgment intact to standard questioning. LABORATORY DATA: Reviewed. IMPRESSION: Major depressive disorder; anxiety disorder, unspecified. Rest as above. PLAN: From a psychiatric standpoint, I would recommend starting the patient on Remeron 7.5 mg p.o. at bedtime, both for his mood and anxiety symptoms to help with his insomnia and to stimulate his appetite. Additionally, we will start Wellbutrin-XL 150 mg a day in the morning to help with this mood, a motivation, apathy tiredness as Wellbutrin is more for stimulating antidepressant. We will make further changes depending on his progress. Dr. Whiting, thank you for the opportunity to participate in your patient's care. We will follow with you. VERONICA BUTLER MD DR: ELLIOT/radhika JOB#: [id number] / [id number]
[2017-05-12 05:36] VITALS: BP 163/82
[2017-05-12] MEDS: ALBUTEROL SULFATE 2.5 MG/3 ML NEBU. NEB SCH ×4 (05:45→20:49)
--- NOTE | 2017-05-12 07:39 | ACF ---
Admit Criteria Forms Admit Criteria Forms Admit Criteria Forms PSYCHIATRIC DISORDERS Clinical Indications for Inpatient Care (Place 'X' for any and all applicable criteria): Ongoing inpatient care may be needed for 1 or more of the following(1)(2)(3)(4)( 6)(7)(8): [ ]I. Danger to self or others not manageable at lower level of care. [ ]II. Grave disability (eg, inability to perform self care necessary at lower level of care) [ ]III. Agitation or inappropriate behavior interfering with care for primary condition (eg, attempting to discontinue lines or drains prematurely, unable to cooperate with respiratory care) [X]IV. Severe disability or disorder indicated by ALL of the following: [X]a) Severe behavioral health disorder-related symptoms or condition indicated by 1 or more of the following: [ ]i) Severe problem with cognition, memory, judgment, or impulse control [X]ii) Severe clinical manifestations (eg, hallucinations, delusions, other acute psychotic symptoms, cheikh, extreme agitation or anxiety) [X]b) Patient management at lower level of care is not feasible until acute intervention or modification is initiated. Extended stay beyond goal length of stay for the primary condition may be needed untilALLof the following are present(1)(2)(3)(4)722)(23): [ ]a) Danger to self or others is absent or manageable at lower level of care [ ]b) Behavior crisis management, including physical or chemical restraints, is required and is not available at a lower level of care. [ ]c) Behavioral symptoms (e.g., agitation, somnolence, inappropriate behavior) are present, and are not manageable at a lower level of care. [ ]d) Patient cannot understand follow-up treatment and crisis plan. [ ]e) Provider and supports are sufficiently available at lower level of care. [ ]f) Patient can participate (e.g., verify absence of plan for harm) and is in needed of monitoring. The original [facility] content created by [facility] [email or web address] has been revised. The portions of the content which have been revised are identified through the use of italic text, and [email or web address] has neither reviewed nor approved the modified material. All other unmodified content is copyright [facility] [email or web address]. Please see references footnoted in the original [facility] edition 2014 AKIN ESPINOSA May 12, 2017 07:39
[2017-05-12] MEDS: PANTOPRAZOLE 40 MG TABLET. PO SCH (08:53)
[2017-05-12] MEDS: AMIODARONE HCL 200 MG TABLET PO SCH (08:53)
[2017-05-12] MEDS: FINASTERIDE 5 MG TABLET PO SCH (08:54)
[2017-05-12] MEDS: ASPIRIN 81 MG TAB.CHEW PO SCH (08:54)
[2017-05-12] MEDS: METOPROLOL TART IMMED RELEASE 25 MG TABLET PO SCH ×2 (08:54→21:11)
[2017-05-12] MEDS ORDERED: buPROPion XL 150 MG TAB.ER.24H PO SCH (09:00)
[2017-05-12] MEDS: BUDESONIDE 0.5 MG/2 ML NEBU NEB SCH ×2 (09:30→20:49)
[2017-05-12] MEDS ORDERED: WARFARIN 4 MG TABLET. PO SCH (16:00)
--- NOTE | 2017-05-12 18:32 | PDOC ---
Exam Evens Demential Exam: Evens Note: Please also refer to the separate dictated note~for this date of service dictated separately.~Patient seen individually. Discussed the patient with Nursing staff reviewed the chart.~Reviewed interim history and current functioning. Reviewed vital signs,~Labs/ Radiology~and current medications noted below. Continue current treatment with the changes noted in the dictated addendum note Assessment: Vital Signs: Vital Signs Date Time Temp Pulse Resp B/P (MAP) Pulse Ox O2 Delivery O2 Flow Rate FiO2 05/12/17 15:15 96 Nasal Cannula 2.0 05/12/17 08:54 81 163/82 05/12/17 05:36 97.9 16 I&O Intake and Output 05/13/17 07:00 Intake Total 960 ml Output Total 425 ml Balance 535 ml Intake Oral 960 ml Output Urine Total 425 ml Labs: Laboratory Tests Test 05/12/17 06:10 Prothrombin Time 20.8 SEC (9.4-11.4) H Prothrombin Time INR 2.0 (0.9-1.1) H Current Medications: Meds: Current Medications Acetaminophen (Tylenol) 325 mg PRN Q4HRS PRN PO PAIN; Start 05/10/17 at 14:15 Amiodarone HCl (Cordarone) 200 mg DAILY PO Last administered on 05/12/17 08:53 ; Start 05/11/17 at 09:00 Aspirin (Children'S Aspirin) 81 mg DAILY PO Last administered on 05/12/17 08:54 ; Start 05/11/17 at 09:00 Finasteride (Proscar) 5 mg DAILY PO Last administered on 05/12/17 08:54; Start 05/11/17 at 09:00 Guaifenesin (Mucinex Er) 600 mg PRN BID PRN PO CONGESTION; Start 05/10/17 at 14: 15 Acetaminophen/ Hydrocodone Bitart (Lortab 5/325) 1 tab PRN Q4HRS PRN PO PAIN; Start 05/10/17 at 14:15 Metoprolol Tartrate (Lopressor) 25 mg BID PO Last administered on 05/12/17 08: 54; Start 05/10/17 at 21:00 Pantoprazole Sodium (Protonix) 40 mg DAILYAC PO Last administered on 05/12/17 08:53; Start 05/11/17 at 07:30 Tamsulosin HCl (Flomax) 0.8 mg QHS PO Last administered on 05/11/17 20:24; Start 05/10/17 at 21:00 Warfarin Sodium (Coumadin) 4 mg DAILY16 PO Last administered on 05/10/17 16:14 ; Start 05/10/17 at 16:00; Stop 05/11/17 at 10:47; Status DC Non-Formulary Medication 1 vial QID NEB ; Start 05/10/17 at 17:00; Status UNV Non-Formulary Medication 2 puff BID IH ; Start 05/10/17 at 21:00; Stop 05/10/17 at 21:00; Status DC Warfarin Sodium (Coumadin Per Pharmacy) 1 each PRN DAILY PRN MC SEE COMMENTS Last administered on 05/11/17 10:42; Start 05/10/17 at 14:30 Albuterol Sulfate (Ventolin) 2.5 mg PRN Q6HRS PRN NEB SHORTNESS OF BREATH; Start 05/10/17 at 14:45; Status UNV Albuterol Sulfate (Ventolin) 2.5 mg RTQID NEB Last administered on 05/12/17 15: 15; Start 05/10/17 at 16:00 Budesonide (Pulmicort) 0.5 mg RTBID NEB Last administered on 05/12/17 09:30; Start 05/10/17 at 20:00 Atorvastatin Calcium (Lipitor) 40 mg QHS PO Last administered on 05/11/17 20:24 ; Start 05/10/17 at 21:00 Albuterol Sulfate (Ventolin) 2.5 mg PRN Q6HRS PRN NEB SHORTNESS OF BREATH; Start 05/10/17 at 15:15 Sodium Chloride 500 ml @ 0 mls/hr 1X ONCE IV Last administered on 05/11/17 10: 05; Start 05/11/17 at 08:00; Stop 05/11/17 at 08:01; Status DC Warfarin Sodium (Coumadin) 2.5 mg 1X WARF ONCE PO Last administered on 16:02; Start 05/11/17 at 16:00; Stop 05/11/17 at 16:01; Status DC Warfarin Sodium (Coumadin) 2 mg 1X WARF ONCE PO Last administered on 9/6/17at 16:02; Start 05/11/17 at 16:00; Stop 05/11/17 at 16:01; Status DC Bupropion HCl (Wellbutrin Xl) 150 mg DAILY PO Last administered on 05/12/17 08: 53; Start 05/12/17 at 09:00 Mirtazapine (Remeron) 7.5 mg QHS PO Last administered on 05/11/17 20:23; Start 05/11/17 at 21:00 Warfarin Sodium (Coumadin) 4 mg DAILY16 PO Last administered on 05/12/17 16:42 ; Start 05/12/17 at 16:00 Active Scripts Active Coumadin (Warfarin Sodium) 4 Mg Tablet 4 Mg PO DAILY16 30 Days Flomax (Tamsulosin Hcl) 0.4 Mg Cap.er.24h 0.8 Mg PO QHS 30 Days Pantoprazole Sodium 40 Mg Tablet.dr 40 Mg PO DAILYAC 30 Days Reported Metoprolol Tartrate 25 Mg Tablet 1 Tab PO BID Hydrocodone-Apap 5-325 (Hydrocodone Bit/Acetaminophen) 1 Each Tablet 1 Tab PO PRN Q4HRS PRN Mucinex (Guaifenesin) 600 Mg Tablet.er 1 Tab PO PRN BID PRN Finasteride 5 Mg Tablet 1 Tab PO DAILY Symbicort 160-4.5 Mcg Inhaler (Budesonide/Formoterol Fumarate) 10.2 Gm Hfa.aer.ad 2 Puff IH BID Aspirin 81 Mg Tab.chew 81 Mg PO DAILY Amiodarone Hcl 200 Mg Tablet 1 Tab PO DAILY Albuterol Sulfate Neb Soln (Albuterol Sulfate) 0.63 Mg/3 Ml Vial.neb 1 Vial NEB QID Tylenol (Acetaminophen) 325 Mg Tablet 1 Tab PO PRN Q4HRS Diagnosis: Problems: (1) Major depressive disorder, recurrent episode (2) Anxiety disorder VERONICA BUTLER MD May 12, 2017 18:32
[2017-05-12 20:45] VITALS: BP 136/68
[2017-05-12] MEDS: TAMSULOSIN 0.4 MG CAP.ER.24H. PO SCH (20:51)
[2017-05-12] MEDS: MIRTAZAPINE 7.5 MG TABLET. PO SCH (20:51)
[2017-05-12] MEDS: ATORVASTATIN CALCIUM 20 MG TABLET PO SCH (20:51)
[2017-05-12 21:11] VITALS: BP 136/68
[2017-05-13 02:34] LABS: BASO # 0.1 x10^3/uL (0.0-0.2); BASO % 1 % (0-3); EOS # 0.5 x10^3/uL (0.0-0.7); EOS % 6 % (0-3); HEMATOCRIT 30.2 % (39.0-53.0); HEMOGLOBIN 10.1 g/dL (13.0-17.5); LYMPH # 0.9 x10^3/uL (1.0-4.8); LYMPH % 11 % (24-48); MEAN CORPUSCULAR HEMOGLOBIN 31 pg (25-35); MEAN CORPUSCULAR HGB CONC 33 g/dL (31-37); MEAN CORPUSCULAR VOLUME 93 fL (79-100); MONO # 0.8 x10^3/uL (0.0-1.1); MONO % 10 % (0-9); NEUT # 6.3 x10^3uL (1.8-7.7); NEUT % 73 % (31-73); PLATELET COUNT 308 x10^3/uL (140-400); RED BLOOD COUNT 3.25 x10^6/uL (4.30-5.70); WHITE BLOOD COUNT 8.6 x10^3/uL (4.0-11.0)
--- NOTE | 2017-05-13 02:59 | RAD ---
INDICATION: COUGHING UP BLACK SPUTUM, SOA, HX EMPHYSEMA, OPEN HEART SURGERY, COMPARISON: May 04, 2017 FINDINGS: Single view of chest obtained. Poststernotomy changes are again seen. Diffuse coarsening of the interstitial markings bilaterally. Blunting of the costophrenic angles. Linear opacity within the left mid lung as well as patchy opacity at right lung base which appears increased from prior. IMPRESSION: Linear opacity left mid lung and patchy opacity right lung base which appears increased from prior. Could be secondary to atelectasis or infiltrate. Aspiration also in differential. Would consider obtaining a follow-up to ensure resolution to exclude neoplastic causes given that a portion of this was present on prior as well. Blunting of costophrenic angles. Could be from small pleural effusions. Coarsening of the lung markings bilaterally which could be secondary to chronic lung disease. Electronically signed by: Chidi Carter MD (05/13/2017 2:55 AM) [facility]
--- NOTE | 2017-05-13 05:05 | PN ---
DATE: 05/12/2017 This note covers elements not covered in my initial note of 05/12/2017. SUBJECTIVE: The patient was seen individually in the evening of 05/12/2017. The patient still remains depressed, withdrawn, but states he slept better last night and appetite is a little better today. He is tolerating the Wellbutrin and Remeron so far. REVIEW OF SYSTEMS: Positive for some tiredness. No CV, , pulmonary, eye system symptoms on review. MENTAL STATUS EXAM: Oriented reasonably. Speech is coherent, abstraction fair, computation impaired, language function intact, attention span short. Mood and affect still dysphoric, depressed, but showing some improvement. LABORATORY DATA: Reviewed. IMPRESSION: Major depressive disorder; anxiety disorder, unspecified. PLAN: Continue with Wellbutrin-XL 150 mg in the morning, Remeron 7.5 mg p.o. at bedtime. May need to adjust further as clinically indicated. Reviewed drug interactions. Risk/benefit ratio favors no further change at this time. VERONICA BUTLER MD DR: ELLIOT/radhika JOB#: [id number] / [id number]
[2017-05-13] MEDS ORDERED: BUPR150T15 PO (13:07)
[2017-05-13] MEDS ORDERED: MIRT15TA PO (13:07)
[2017-05-13] MEDS ORDERED: ATOR40TA PO (13:07)
== END 2017-05-13 02:45 | disposition home health service (06) | DRG 885 ==
LOC: LND 12:15
PROVIDERS: ADMIT Internal Medicine; ATTEND Internal Medicine
DX: F33.9 Major depressive disorder, recurrent, unspecified (principal); J44.9 Chronic obstructive pulmonary disease, unspecified; F41.9 Anxiety disorder, unspecified; E86.0 Dehydration; I25.10 Atherosclerotic heart disease of native coronary artery without angina pectoris; I10 Essential (primary) hypertension; N40.0 Benign prostatic hyperplasia without lower urinary tract symptoms; E78.5 Hyperlipidemia, unspecified; G47.00 Insomnia, unspecified; Z80.7 Family history of other malignant neoplasms of lymphoid, hematopoietic and related tissues; Z82.49 Family history of ischemic heart disease and other diseases of the circulatory system; Z83.3 Family history of diabetes mellitus; Z87.891 Personal history of nicotine dependence; Z95.1 Presence of aortocoronary bypass graft; Z98.41 Cataract extraction status, right eye; Z98.42 Cataract extraction status, left eye; Z98.61 Coronary angioplasty status
CPT/HCPCS: 36415; 71010; 84484; 85025; 85610; 94640; 94760; J7040; J7613; J7626; 92610; 97110; 97116; 97530; 97535

== ENCOUNTER 2017-05-13 02:15 | Inpatient (IN) | payer MEDICARE, BC ==
[~2017-05-13] VITALS: Ht 177.8 cm; Wt 52.2 kg
[2017-05-13] VITALS (10 sets, daily range): BP systolic 104–160; BP diastolic 56–85
[~2017-05-13 02:15] MED LIST changes: +PANT40TA5 PO; +TAMS0.4C97 PO; +WARF4TAB68 PO
--- NOTE | 2017-05-13 06:31 | EKG ---
[address] [address] Test Date: 2017-05-13 Test Time: 03:38:46 Pat Name: MIKIE KRUGER Department: Room: [facility] 1 Gender: M [employer] Manager: FELIPA : 1940 Requested By: REYES STEWARD Order Number: [id number] Reading MD: Campbell Smith Measurements Intervals [place] Rate: 65 P: 90 RI: 208 QRS: -78 QRSD: 146 T: 51 QT: 500 QTc: 521 Interpretive Statements SINUS RHYTHM RBBB LAFB Electronically Signed On 05-13-2017 15:34:31 CDT by Campbell Smith
[2017-05-13] MEDS ORDERED: PIP/TAZO PER PHARMACY MC PRN (06:45)
[2017-05-13] MEDS ORDERED: VANCOMYCIN PER PHARMACY MC PRN (06:45)
[2017-05-13] MEDS ORDERED: PIPERACILLIN/TAZOBACTAM 4.5 GM in IV NORMAL SALINE 50ML 50 ML IV SCH (07:15)
[2017-05-13] MEDS: VANCOMYCIN 1.25 GM in IV NORMAL SALINE 250ML 250 ML IV ONE ×2 (07:41→08:00)
[2017-05-13] MEDS ORDERED: IV NORMAL SALINE 500ML 500 ML ONE (07:51)
[2017-05-13] MEDS ORDERED: ACETAMINOPHEN 325 MG TABLET PO PRN (09:15)
[2017-05-13] MEDS ORDERED: ALBUTEROL SULFATE 2.5 MG/3 ML NEBU. ONE (09:22)
[2017-05-13] MEDS ORDERED: BUDESONIDE 0.5 MG/2 ML NEBU ONE (09:22)
[2017-05-13] MEDS: DOXYCYCLINE HYCLATE 100 MG TABLET PO SCH ×2 (10:20→20:12)
[2017-05-13] MEDS: METOPROLOL TART IMMED RELEASE 25 MG TABLET PO SCH ×2 (10:21→20:12)
[2017-05-13] MEDS: PANTOPRAZOLE 40 MG TABLET. PO SCH (10:21)
[2017-05-13] MEDS ORDERED: DOCUSATE SODIUM 100 MG CAPSULE PO PRN (10:30)
[2017-05-13] MEDS: ALBUTEROL SULFATE 2.5 MG/3 ML NEBU. NEB SCH ×3 (10:49→20:25)
[2017-05-13 11:21] LABS: FECAL OB PT NEGATIVE (NEG)
[2017-05-13] MEDS ORDERED: NON FORMULARY ITEM (Albuterol Sulfate (Albuterol Sulfate Neb Soln) 1 VIAL) NEB SCH (13:00)
[2017-05-13] MEDS ORDERED: MIRT15TA PO (13:07)
[2017-05-13] MEDS ORDERED: ATOR40TA PO (13:07)
[2017-05-13] MEDS ORDERED: BUPR150T15 PO (13:07)
[2017-05-13] MEDS ORDERED: WARFARIN 4 MG TABLET. PO SCH (16:00)
--- NOTE | 2017-05-13 16:08 | PDOC1 ---
History and Physicial 76year-old male WHO WAS TRANSFERRED TO THE ICU IN THE MIDDLE OF THE NIGHT AFTER COUGHING UP SOME THICK BLACK SPUTUM. HE STATES HE COULDN'T GET THE SPUTUM TO COME UP ;AND AND HE BECAME SHORT OF BREATH . HE HAD A SAT OF 89% BRIEFLY AND A CXR INDICATED PNEUMONIA SO HE WAS ADMITTED TO THE MEDICAL SERVICE FROM [facility] who apparently underwent 5-vessel coronary artery bypass graft surgery on 04/18/2017 at [facility]. His postoperative course was complicated by acute on chronic respiratory distress that required intubation. On 04/22/2017 bronchoscopy indicated right lower lobe bronchoalveolar lavage that grew pseudomonas and was treated for that with Zosyn. He also developed postoperative paroxysmal atrial fibrillation with acute diastolic left ventricular failure, requiring inotropes. The patient was extubated on 04/24/2017. He was transferred back to the floor on 04/26/2017. He finally passed the swallow evaluation. He was started on dysphagia 2 diet with thin liquids. He continued to complain of shortness of breath on exertion and he also has poor appetite and he was losing weight prior to this admission. When I saw him today, he was resting, slightly propped up in bed, clinically very dehydrated. He is also known to have benign prostatic hypertrophy with urinary retention, requiring indwelling Bowen catheter. PAST MEDICAL HISTORY: Significant for benign prostatic hypertrophy, chronic obstructive pulmonary disease, coronary artery disease involving his [place] coronary arteries with status post 5-vessel coronary artery bypass graft surgery. He is a lifelong smoker and quit before his most recent surgery. He has elevated PSA, essential hypertension, malnutrition, mixed hyperlipidemia, supraventricular tachycardia and tobacco abuse disorder. PAST SURGICAL HISTORY: Significant for coronary angiography with PCI, coronary artery bypass graft surgery. He has bilateral cataract extraction, multiple tooth extraction, prostate biopsy, and tympanostomy on the left side. FAMILY HISTORY: His father had Hodgkin's disease. Mother has coronary artery disease. Brother has diabetes. SOCIAL HISTORY: He is . Currently everyday smoker, he smokes half a pack a day and smoked for years. He never used smokeless tobacco. He does not drink alcohol or use any recreational drugs. ALLERGIES: He has no known drug allergies. Medications: reviewed and reconciled by myself ROS: fatigue, SOB LABS AND X -RAYS REVIEWED PE : Debilitated elderly male in no acute distress Tongue slightly dry, throat clear, neck supple without adenopathy, Lungs clear to auscultation WITH A FEW CRACKLES , CVRRR , ext without edema, muscle wasting noted of leg Assessment: 1. coronary artery disease, status post 5-vessel coronary artery bypass graft surgery. 2. Severe chronic obstructive pulmonary disease. 3. Benign prostatic hypertrophy with bladder outlet obstruction, requiring indwelling Bowen catheter. 4. Essential hypertension. 5. Hyperlipidemia. 6. Tobacco abuse disorder. 7. marked debility and deconditioning. 8. Severe proteiN CALORIE MALNU=TRITION 15.8. 9.weight loss 10. ASPIRATION PNEUMONIA PLAN: IV ANTIBIOTICS, BREATHING TREATMENTS. Problems: JSESICA DOVER DO May 13, 2017 16:08
[2017-05-13] MEDS: TAMSULOSIN 0.4 MG CAP.ER.24H. PO SCH (20:12)
[2017-05-13] MEDS: MIRTAZAPINE 7.5 MG TABLET. PO SCH (20:12)
[2017-05-13] MEDS: ATORVASTATIN CALCIUM 20 MG TABLET PO SCH (20:12)
[2017-05-13] MEDS: BUDESONIDE 0.5 MG/2 ML NEBU NEB SCH (20:24)
--- NOTE | 2017-05-13 20:27 | PDOC ---
Exam Evens Demential Exam: Evens Note: Please also refer to the separate dictated note~for this date of service dictated separately.~Patient seen individually. Discussed the patient with Nursing staff reviewed the chart.~Reviewed interim history and current functioning. Reviewed vital signs,~Labs/ Radiology~and current medications noted below. Continue current treatment with the changes noted in the dictated addendum note Assessment: Vital Signs: Vital Signs Date Time Temp Pulse Resp B/P (MAP) Pulse Ox O2 Delivery O2 Flow Rate FiO2 05/13/17 20:12 76 137/65 05/13/17 18:30 97.5 24 92 Nasal Cannula 2.0 I&O Intake and Output 05/14/17 07:00 Intake Total 950 ml Output Total 500 ml Balance 450 ml Intake Oral 900 ml IV Total 50 ml Output Urine Total 500 ml # Bowel Movements 1 Labs: Laboratory Tests Test 05/13/17 02:30 05/13/17 07:13 05/13/17 10:40 Nasal Screen MRSA (PCR) Negative (Negative) Lactic Acid Level 0.8 mmol/L (0.4-2.0) Stool Occult Blood Negative (NEG) Current Medications: Meds: Current Medications Piperacillin Sod/ Tazobactam Sod (Zosyn Per Pharmacy) 1 each PRN DAILY PRN MC SEE COMMENTS; Start 05/13/17 at 06:45; Stop 05/13/17 at 08:30; Status DC Vancomycin HCl (Vanco Per Pharmacy) 1 each PRN DAILY PRN MC SEE COMMENTS; Start 05/13/17 at 06:45; Stop 05/13/17 at 08:30; Status DC Piperacillin Sod/ Tazobactam Sod 4.5 gm/Sodium Chloride 50 ml @ 100 mls/hr Q8HRS IV Last administered on 05/13/17 07:53; Start 05/13/17 at 07:15; Stop 05/13 at 08:30; Status DC Vancomycin HCl 1.25 gm/Sodium Chloride 250 ml @ 166.667 mls/hr 1X ONCE IV ; Start 05/13/17 at 08:00; Stop 05/13/17 at 09:29; Status DC Sodium Chloride 500 ml @ As Directed STK-MED ONCE .ROUTE Last administered on 05/13/17 07:54; Start 05/13/17 at 07:51; Stop 05/13/17 at 07:52; Status DC Doxycycline Hyclate (Vibra-Tab) 100 mg BID PO Last administered on 05/13/17 20: 12; Start 05/13/17 at 09:00 Acetaminophen (Tylenol) 325 mg PRN Q4HRS PRN PO PAIN/TEMP; Start 05/13/17 at 09: 15 Amiodarone HCl (Cordarone) 200 mg DAILY PO ; Start 05/14/17 at 09:50 Aspirin (Children'S Aspirin) 81 mg DAILY PO ; Start 05/14/17 at 11:00 Finasteride (Proscar) 5 mg DAILY PO ; Start 05/14/17 at 10:00 Guaifenesin (Mucinex Er) 600 mg PRN BID PRN PO CONGESTION Last administered on 05/13/17 10:21; Start 05/13/17 at 09:15 Acetaminophen/ Hydrocodone Bitart (Lortab 5/325) 1 tab PRN Q4HRS PRN PO PAIN; Start 05/13/17 at 09:15 Metoprolol Tartrate (Lopressor) 25 mg BID PO Last administered on 05/13/17 20: 12; Start 05/13/17 at 10:00 Pantoprazole Sodium (Protonix) 40 mg DAILYAC PO Last administered on 05/13/17 10:21; Start 05/13/17 at 10:00 Tamsulosin HCl (Flomax) 0.8 mg QHS PO Last administered on 05/13/17 20:12; Start 05/13/17 at 21:00 Warfarin Sodium (Coumadin) 4 mg DAILY16 PO Last administered on 05/13/17 16:20 ; Start 05/13/17 at 16:00 Non-Formulary Medication 1 vial QID NEB ; Start 05/13/17 at 13:00; Stop 05/13/17 at 13:00; Status DC Non-Formulary Medication 2 puff BID IH ; Start 05/13/17 at 21:00; Stop 05/13/17 at 21:00; Status DC Albuterol Sulfate (Ventolin) 2.5 mg STK-MED ONCE .ROUTE Last administered on 09:31; Start 05/13/17 at 09:22; Stop 05/13/17 at 09:23; Status DC Budesonide (Pulmicort) 0.5 mg STK-MED ONCE .ROUTE Last administered on 09:30; Start 05/13/17 at 09:22; Stop 05/13/17 at 09:23; Status DC Albuterol Sulfate (Ventolin) 2.5 mg RTQID NEB Last administered on 05/13/17 20: 25; Start 05/13/17 at 12:00 Budesonide (Pulmicort) 0.5 mg RTBID NEB Last administered on 05/13/17 20:24; Start 05/13/17 at 20:00 Docusate Sodium (Colace) 100 mg PRN DAILY PRN PO CONSTIPATION Last administered on 05/13/17 11:02; Start 05/13/17 at 10:30 Bupropion HCl (Wellbutrin Xl) 150 mg DAILYWBKFT PO ; Start 05/14/17 at 08:00 Mirtazapine (Remeron) 7.5 mg QHS PO Last administered on 05/13/17 20:12; Start 05/13/17 at 21:00 Atorvastatin Calcium (Lipitor) 40 mg QHS PO Last administered on 05/13/17 20:12 ; Start 05/13/17 at 21:00 Warfarin Sodium (Coumadin Per Pharmacy) 1 each PRN DAILY PRN MC SEE COMMENTS Last administered on 05/13/17 13:23; Start 05/13/17 at 13:15 Active Scripts Active Coumadin (Warfarin Sodium) 4 Mg Tablet 4 Mg PO DAILY16 30 Days Flomax (Tamsulosin Hcl) 0.4 Mg Cap.er.24h 0.8 Mg PO QHS 30 Days Pantoprazole Sodium 40 Mg Tablet.dr 40 Mg PO DAILYAC 30 Days Reported Lipitor (Atorvastatin Calcium) 40 Mg Tablet 1 Tab PO QHS Wellbutrin Xl (Bupropion Hcl) 150 Mg Tab.er.24h 1 Tab PO DAILYWBKFT Remeron (Mirtazapine) 15 Mg Tablet 0.5 Tab PO QHS Metoprolol Tartrate 25 Mg Tablet 1 Tab PO BID Hydrocodone-Apap 5-325 (Hydrocodone Bit/Acetaminophen) 1 Each Tablet 1 Tab PO PRN Q4HRS PRN Mucinex (Guaifenesin) 600 Mg Tablet.er 1 Tab PO PRN BID PRN Finasteride 5 Mg Tablet 1 Tab PO DAILY Symbicort 160-4.5 Mcg Inhaler (Budesonide/Formoterol Fumarate) 10.2 Gm Hfa.aer.ad 2 Puff IH BID Aspirin 81 Mg Tab.chew 81 Mg PO DAILY Amiodarone Hcl 200 Mg Tablet 1 Tab PO DAILY Albuterol Sulfate Neb Soln (Albuterol Sulfate) 0.63 Mg/3 Ml Vial.neb 1 Vial NEB QID Tylenol (Acetaminophen) 325 Mg Tablet 1 Tab PO PRN Q4HRS Diagnosis: Problems: (1) Anxiety disorder (2) Major depressive disorder, recurrent episode VERONICA BUTLER MD May 13, 2017 20:27
[2017-05-13] MEDS ORDERED: NON FORMULARY ITEM (Budesonide/Formoterol Fumarate (Symbicort 160-4.5 Mcg Inhaler) 2 PUFF) IH SCH (21:00)
[2017-05-14 00:01] VITALS: BP 111/49
[2017-05-14 04:13] VITALS: BP 136/71
[2017-05-14] MEDS: ALBUTEROL SULFATE 2.5 MG/3 ML NEBU. NEB SCH ×4 (04:59→20:25)
[2017-05-14 06:13] LABS: BASO # 0.1 x10^3/uL (0.0-0.2); BASO % 1 % (0-3); EOS # 0.5 x10^3/uL (0.0-0.7); EOS % 6 % (0-3); HEMATOCRIT 27.5 % (39.0-53.0); HEMOGLOBIN 9.1 g/dL (13.0-17.5); LYMPH # 0.7 x10^3/uL (1.0-4.8); LYMPH % 9 % (24-48); MEAN CORPUSCULAR HEMOGLOBIN 31 pg (25-35); MEAN CORPUSCULAR HGB CONC 33 g/dL (31-37); MEAN CORPUSCULAR VOLUME 93 fL (79-100); MONO # 0.8 x10^3/uL (0.0-1.1); MONO % 10 % (0-9); NEUT # 5.9 x10^3uL (1.8-7.7); NEUT % 74 % (31-73); PLATELET COUNT 264 x10^3/uL (140-400); RED BLOOD COUNT 2.98 x10^6/uL (4.30-5.70); RED CELL DISTRIBUTION WIDTH 16.3 % (11.5-14.5)
[2017-05-14 06:26] LABS: ALBUMIN 2.4 g/dL (3.4-5.0); ALBUMIN/GLOBULIN RATIO 0.7 (1.0-1.7); CALCIUM 8.7 mg/dL (8.5-10.1); CREATININE 0.9 mg/dL (0.7-1.3); GFR 82.5; MAGNESIUM 1.7 mg/dL (1.8-2.4); POTASSIUM 4.4 mmol/L (3.5-5.1); TOTAL BILIRUBIN 0.3 mg/dL (0.2-1.0); TOTAL PROTEIN 5.8 g/dL (6.4-8.2)
[2017-05-14 08:00] VITALS: BP 111/56
[2017-05-14] MEDS ORDERED: MAGNESIUM SULFATE 2GM 50 ML IV ONE (08:30)
[2017-05-14] MEDS: DOXYCYCLINE HYCLATE 100 MG TABLET PO SCH ×2 (09:11→20:06)
[2017-05-14] MEDS: PANTOPRAZOLE 40 MG TABLET. PO SCH (09:12)
[2017-05-14] MEDS: METOPROLOL TART IMMED RELEASE 25 MG TABLET PO SCH ×2 (09:12→20:06)
[2017-05-14] MEDS: FINASTERIDE 5 MG TABLET PO SCH (09:12)
[2017-05-14] MEDS: AMIODARONE HCL 200 MG TABLET PO SCH (09:12)
[2017-05-14] MEDS: buPROPion XL 150 MG TAB.ER.24H PO SCH (09:16)
--- NOTE | 2017-05-14 09:26 | RAD ---
Portable chest, 05/14/2017: History: Cough, pneumonia Comparison is made to yesterday's study. There has been a previous median sternotomy. The heart size is normal. There is calcific plaquing of aorta. There is blunting of the costophrenic angles compatible with pleural effusions, left greater than right. There are moderate underlying streaky bibasilar opacities compatible with atelectasis and/or scarring. A component of pneumonia cannot be excluded. Similar findings were present on yesterday's exam. IMPRESSION: 1. Small bilateral pleural effusions, left greater than right. 2. Moderate streaky bibasilar atelectasis and/or scarring. 3. No significant change since yesterday's exam.
[2017-05-14] MEDS: BUDESONIDE 0.5 MG/2 ML NEBU NEB SCH ×2 (10:58→20:25)
[2017-05-14 12:00] VITALS: BP 106/60
[2017-05-14] MEDS: ASPIRIN 81 MG TAB.CHEW PO SCH (12:10)
[2017-05-14 16:00] VITALS: BP 113/59
[2017-05-14] MEDS ORDERED: WARFARIN 3 MG TABLET. PO ONE (16:00)
[2017-05-14 19:00] VITALS: BP 125/66
[2017-05-14] MEDS: MIRTAZAPINE 7.5 MG TABLET. PO SCH (20:05)
[2017-05-14] MEDS: TAMSULOSIN 0.4 MG CAP.ER.24H. PO SCH (20:06)
[2017-05-14] MEDS: ATORVASTATIN CALCIUM 20 MG TABLET PO SCH (20:06)
--- NOTE | 2017-05-14 21:08 | PN ---
DATE: 05/13/2017 This is a late entry for date of service 05/13/2017 and covers elements not covered in my initial note of 05/13/217. SUBJECTIVE: The patient was seen in ICU bed 2, as [facility] on account of a gastrointestinal bleed, possible pneumonia. From a psychiatric standpoint, he has been a little more animated, subjectively still admits to feeling depressed. MENTAL STATUS EXAM: The patient is reasonably oriented. Speech is coherent, has some latency, abstraction fair, computation impaired, language function intact, attention span short. Mood and affect still depressed, showing some improvement. No active suicidal or homicidal ideation. LABORATORY DATA: Reviewed. IMPRESSION: Major depressive disorder, recurrent; anxiety disorder, unspecified. PLAN: Continue Wellbutrin XL 150 mg a day, Remeron 7.5 mg p.o. at bedtime. May need to increase Wellbutrin in due course. VERONICA BUTLER MD DR: ELLIOT/radhika JOB#: [id number] / [id number]
--- NOTE | 2017-05-14 21:17 | PDOC ---
Exam Evens Demential Exam: Evens Note: Please also refer to the separate dictated note~for this date of service dictated separately.~Patient seen individually. Discussed the patient with Nursing staff reviewed the chart.~Reviewed interim history and current functioning. Reviewed vital signs,~Labs/ Radiology~and current medications noted below. Continue current treatment with the changes noted in the dictated addendum note Assessment: Vital Signs: Vital Signs Date Time Temp Pulse Resp B/P (MAP) Pulse Ox O2 Delivery O2 Flow Rate FiO2 05/14/17 20:29 Nasal Cannula 2.0 05/14/17 20:25 96 05/14/17 20:06 64 125/66 05/14/17 16:00 98.2 17 I&O Intake and Output 05/15/17 07:00 Output Total 475 ml Balance -475 ml Output Urine Total 475 ml Labs: Laboratory Tests Test 05/14/17 06:05 White Blood Count 8.0 x10^3/uL (4.0-11.0) Red Blood Count 2.98 x10^6/uL (4.30-5.70) L Hemoglobin 9.1 g/dL (13.0-17.5) L Hematocrit 27.5 % (39.0-53.0) L Mean Corpuscular Volume 93 fL (79-100) Mean Corpuscular Hemoglobin 31 pg (25-35) Mean Corpuscular Hemoglobin Concent 33 g/dL (31-37) Red Cell Distribution Width 16.3 % (11.5-14.5) H Platelet Count 264 x10^3/uL (140-400) Neutrophils (%) (Auto) 74 % (31-73) H Lymphocytes (%) (Auto) 9 % (24-48) L Monocytes (%) (Auto) 10 % (0-9) H Eosinophils (%) (Auto) 6 % (0-3) H Basophils (%) (Auto) 1 % (0-3) Neutrophils # (Auto) 5.9 x10^3uL (1.8-7.7) Lymphocytes # (Auto) 0.7 x10^3/uL (1.0-4.8) L Monocytes # (Auto) 0.8 x10^3/uL (0.0-1.1) Eosinophils # (Auto) 0.5 x10^3/uL (0.0-0.7) Basophils # (Auto) 0.1 x10^3/uL (0.0-0.2) Prothrombin Time 31.0 SEC (9.4-11.4) H Prothrombin Time INR 3.0 (0.9-1.1) H Sodium Level 144 mmol/L (136-145) Potassium Level 4.4 mmol/L (3.5-5.1) Chloride Level 110 mmol/L (98-107) H Carbon Dioxide Level 35 mmol/L (21-32) H Anion Gap -1 (6-14) L Blood Urea Nitrogen 31 mg/dL (8-26) H Creatinine 0.9 mg/dL (0.7-1.3) Estimated GFR (Cockcroft-Gault) 82.5 BUN/Creatinine Ratio 34 (6-20) H Glucose Level 103 mg/dL (70-99) H Calcium Level 8.7 mg/dL (8.5-10.1) Magnesium Level 1.7 mg/dL (1.8-2.4) L Total Bilirubin 0.3 mg/dL (0.2-1.0) Aspartate Amino Transferase (AST) 30 U/L (15-37) Alanine Aminotransferase (ALT) 53 U/L (16-63) Alkaline Phosphatase 119 U/L (46-116) H Total Protein 5.8 g/dL (6.4-8.2) L Albumin 2.4 g/dL (3.4-5.0) L Albumin/Globulin Ratio 0.7 (1.0-1.7) L Current Medications: Meds: Current Medications Piperacillin Sod/ Tazobactam Sod (Zosyn Per Pharmacy) 1 each PRN DAILY PRN MC SEE COMMENTS; Start 05/13/17 at 06:45; Stop 05/13/17 at 08:30; Status DC Vancomycin HCl (Vanco Per Pharmacy) 1 each PRN DAILY PRN MC SEE COMMENTS; Start 05/13/17 at 06:45; Stop 05/13/17 at 08:30; Status DC Piperacillin Sod/ Tazobactam Sod 4.5 gm/Sodium Chloride 50 ml @ 100 mls/hr Q8HRS IV Last administered on 05/13/17t 07:53; Start 05/13/17 at 07:15; Stop 05/13 at 08:30; Status DC Vancomycin HCl 1.25 gm/Sodium Chloride 250 ml @ 166.667 mls/hr 1X ONCE IV ; Start 05/13/17 at 08:00; Stop 05/13/17 at 09:29; Status DC Sodium Chloride 500 ml @ As Directed STK-MED ONCE .ROUTE Last administered on 05/13/17 07:54; Start 05/13/17 at 07:51; Stop 05/13/17 at 07:52; Status DC Doxycycline Hyclate (Vibra-Tab) 100 mg BID PO Last administered on 05/14/17 20: 06; Start 05/13/17 at 09:00 Acetaminophen (Tylenol) 325 mg PRN Q4HRS PRN PO PAIN/TEMP Last administered on 05/14/17 20:06; Start 05/13/17 at 09:15 Amiodarone HCl (Cordarone) 200 mg DAILY PO Last administered on 05/14/17 09:12 ; Start 05/14/17 at 09:50 Aspirin (Children'S Aspirin) 81 mg DAILY PO Last administered on 05/14/17 12:10 ; Start 05/14/17 at 11:00 Finasteride (Proscar) 5 mg DAILY PO Last administered on 05/14/17 09:12; Start 05/14/17 at 10:00 Guaifenesin (Mucinex Er) 600 mg PRN BID PRN PO CONGESTION Last administered on 05/13/17 10:21; Start 05/13/17 at 09:15 Acetaminophen/ Hydrocodone Bitart (Lortab 5/325) 1 tab PRN Q4HRS PRN PO PAIN; Start 05/13/17 at 09:15 Metoprolol Tartrate (Lopressor) 25 mg BID PO Last administered on 05/14/17 20: 06; Start 05/13/17 at 10:00 Pantoprazole Sodium (Protonix) 40 mg DAILYAC PO Last administered on 05/14/17 09:12; Start 05/13/17 at 10:00 Tamsulosin HCl (Flomax) 0.8 mg QHS PO Last administered on 05/14/17 20:06; Start 05/13/17 at 21:00 Warfarin Sodium (Coumadin) 4 mg DAILY16 PO Last administered on 05/13/17 16:20 ; Start 05/13/17 at 16:00; Stop 05/14/17 at 07:39; Status DC Non-Formulary Medication 1 vial QID NEB ; Start 05/13/17 at 13:00; Stop 05/13/17 at 13:00; Status DC Non-Formulary Medication 2 puff BID IH ; Start 05/13/17 at 21:00; Stop 05/13/17 at 21:00; Status DC Albuterol Sulfate (Ventolin) 2.5 mg STK-MED ONCE .ROUTE Last administered on 09:31; Start 05/13/17 at 09:22; Stop 05/13/17 at 09:23; Status DC Budesonide (Pulmicort) 0.5 mg STK-MED ONCE .ROUTE Last administered on 09:30; Start 05/13/17 at 09:22; Stop 05/13/17 at 09:23; Status DC Albuterol Sulfate (Ventolin) 2.5 mg RTQID NEB Last administered on 05/14/17 20: 25; Start 05/13/17 at 12:00 Budesonide (Pulmicort) 0.5 mg RTBID NEB Last administered on 05/14/17 20:25; Start 05/13/17 at 20:00 Docusate Sodium (Colace) 100 mg PRN DAILY PRN PO CONSTIPATION Last administered on 05/13/17 11:02; Start 05/13/17 at 10:30 Bupropion HCl (Wellbutrin Xl) 150 mg DAILYWBKFT PO Last administered on 09:16; Start 05/14/17 at 08:00 Mirtazapine (Remeron) 7.5 mg QHS PO Last administered on 05/14/17 20:05; Start 05/13/17 at 21:00 Atorvastatin Calcium (Lipitor) 40 mg QHS PO Last administered on 05/14/17 20:06 ; Start 05/13/17 at 21:00 Warfarin Sodium (Coumadin Per Pharmacy) 1 each PRN DAILY PRN MC SEE COMMENTS Last administered on 05/14/17 07:47; Start 05/13/17 at 13:15 Warfarin Sodium (Coumadin) 3 mg 1X WARF ONCE PO Last administered on 9/9/17at 15:59; Start 05/14/17 at 16:00; Stop 05/14/17 at 16:01; Status DC Magnesium Sulfate 50 ml @ 25 mls/hr 1X ONCE IV Last administered on 05/14/17t 09:11; Start 05/14/17 at 08:30; Stop 05/14/17 at 10:29; Status DC Active Scripts Active Coumadin (Warfarin Sodium) 4 Mg Tablet 4 Mg PO DAILY16 30 Days Flomax (Tamsulosin Hcl) 0.4 Mg Cap.er.24h 0.8 Mg PO QHS 30 Days Pantoprazole Sodium 40 Mg Tablet.dr 40 Mg PO DAILYAC 30 Days Reported Lipitor (Atorvastatin Calcium) 40 Mg Tablet 1 Tab PO QHS Wellbutrin Xl (Bupropion Hcl) 150 Mg Tab.er.24h 1 Tab PO DAILYWBKFT Remeron (Mirtazapine) 15 Mg Tablet 0.5 Tab PO QHS Metoprolol Tartrate 25 Mg Tablet 1 Tab PO BID Hydrocodone-Apap 5-325 (Hydrocodone Bit/Acetaminophen) 1 Each Tablet 1 Tab PO PRN Q4HRS PRN Mucinex (Guaifenesin) 600 Mg Tablet.er 1 Tab PO PRN BID PRN Finasteride 5 Mg Tablet 1 Tab PO DAILY Symbicort 160-4.5 Mcg Inhaler (Budesonide/Formoterol Fumarate) 10.2 Gm Hfa.aer.ad 2 Puff IH BID Aspirin 81 Mg Tab.chew 81 Mg PO DAILY Amiodarone Hcl 200 Mg Tablet 1 Tab PO DAILY Albuterol Sulfate Neb Soln (Albuterol Sulfate) 0.63 Mg/3 Ml Vial.neb 1 Vial NEB QID Tylenol (Acetaminophen) 325 Mg Tablet 1 Tab PO PRN Q4HRS Diagnosis: Problems: (1) Major depressive disorder, recurrent episode (2) Anxiety disorder VERONICA BUTLER MD May 14, 2017 21:16
--- NOTE | 2017-05-14 23:29 | PN ---
DATE: 05/14/2017 PROBLEMS: Include 1. Aspiration pneumonia. 2. Severe COPD. 3. Acute on chronic respiratory failure requiring oxygen. 4. Bladder outlet obstruction requiring Bowen catheter. 5. Essential hypertension. 6. Hyperlipidemia. 7. Tobacco abuse disorder-quit. 8. Marked debility and deconditioned. 9. Severe protein calorie malnutrition. 10. Hypomagnesemia. 11. [facility] use of anticoagulants. SUBJECTIVE: Doing better and was transferred over from swing bed status because of acute hypoxic episode. He is coughing up some black thick sputum. Chest x-ray showed atelectasis versus pneumonia. He did have a choking episode there and seems to be doing better. Nutritionally, he is starting to eat more. OBJECTIVE: VITAL SIGNS: Blood pressure 136/71, pulse 103, respirations 24, and O2 sat is 96% on 2 liters. His intake was 1000 yesterday and output is 1050. Weight was 107.38. GENERAL: Debilitated 76-year-old, in no acute distress. Resting comfortably eating his breakfast. LUNGS: Clear to auscultation. CARDIOVASCULAR: Regular rhythm and rate and I got a rate of 80 ____. ABDOMEN: Soft and nontender. EXTREMITIES: Poor muscle tone, but without edema. LABORATORY DATA: His hemoglobin is 9.1 and hematocrit 27.5. Chemistry ____ 110, albumin is 2.4, magnesium 1.7, and INR is 3. PLAN: My plan is he has been converted from IV antibiotics to doxycycline and continue breathing treatments. Monitor his INR. Continue with strong encouragement of Boost and nutritional supplements. We will need to be transferred back to the swing bed unit in the next day or so. Also, replace his magnesium. JESSICA DOVER DO DR: MARIBEL/radhika JOB#: [id number] / [id number]
--- NOTE | 2017-05-15 04:37 | PN ---
DATE: 05/14/2017 SUBJECTIVE: This note cover elements not covered in my initial note of 05/14/2017. The patient remains somewhat motivated. Slept better last evening per nursing report. Still withdrawn and depressed. No CV, , pulmonary, or eye system symptoms on review. Complains of being tired. Ambulation impaired. MENTAL STATUS EXAM: Seemed to recognize me. Speech moderate latency and often responses monosyllabic. Abstraction fair, computation impaired, language function intact, and attention span short. Mood and affect still depressed. LABORATORY DATA: Reviewed. IMPRESSION: Major depressive disorder and anxiety disorder, unspecified. PLAN: Continue current psychotropics mentioned in my initial note. Adjust further as clinically indicated. MAN Dorian BUTLER MD DR: ELLIOT/radhika JOB#: [id number] / [id number]
[2017-05-15 05:19] VITALS: BP 118/76
[2017-05-15] MEDS: ALBUTEROL SULFATE 2.5 MG/3 ML NEBU. NEB SCH ×4 (05:32→20:41)
[2017-05-15] MEDS: HYDROcodone/APAP 5/325MG 1 TAB TABLET PO PRN ×2 (06:09→20:58)
[2017-05-15 06:23] VITALS: BP 121/59
[2017-05-15] MEDS: FINASTERIDE 5 MG TABLET PO SCH (09:02)
[2017-05-15] MEDS: DOXYCYCLINE HYCLATE 100 MG TABLET PO SCH ×2 (09:02→20:58)
[2017-05-15] MEDS: ASPIRIN 81 MG TAB.CHEW PO SCH (09:02)
[2017-05-15] MEDS: buPROPion XL 150 MG TAB.ER.24H PO SCH (09:02)
[2017-05-15] MEDS: PANTOPRAZOLE 40 MG TABLET. PO SCH (09:02)
[2017-05-15] MEDS: AMIODARONE HCL 200 MG TABLET PO SCH (09:02)
[2017-05-15] MEDS: METOPROLOL TART IMMED RELEASE 25 MG TABLET PO SCH ×2 (09:03→20:58)
[2017-05-15] MEDS: BUDESONIDE 0.5 MG/2 ML NEBU NEB SCH ×2 (11:01→20:41)
--- NOTE | 2017-05-15 17:34 | PDOC ---
Exam Evens Demential Exam: Evens Note: Please also refer to the separate dictated note~for this date of service dictated separately.~Patient seen individually. Discussed the patient with Nursing staff reviewed the chart.~Reviewed interim history and current functioning. Reviewed vital signs,~Labs/ Radiology~and current medications noted below. Continue current treatment with the changes noted in the dictated addendum note Assessment: Vital Signs: Vital Signs Date Time Temp Pulse Resp B/P (MAP) Pulse Ox O2 Delivery O2 Flow Rate FiO2 05/15/17 16:16 96 Nasal Cannula 2.0 05/15/17 09:03 68 114/61 05/15/17 07:52 98.8 05/15/17 06:23 28 I&O Intake and Output 05/16/17 07:01 Intake Total 400 ml Output Total 325 ml Balance 75 ml Intake Oral 400 ml Output Urine Total 325 ml Labs: Laboratory Tests Test 05/15/17 06:15 Prothrombin Time 31.5 SEC (9.4-11.4) H Prothrombin Time INR 3.1 (0.9-1.1) H Current Medications: Meds: Current Medications Piperacillin Sod/ Tazobactam Sod (Zosyn Per Pharmacy) 1 each PRN DAILY PRN MC SEE COMMENTS; Start 05/13/17 at 06:45; Stop 05/13/17 at 08:30; Status DC Vancomycin HCl (Vanco Per Pharmacy) 1 each PRN DAILY PRN MC SEE COMMENTS; Start 05/13/17 at 06:45; Stop 05/13/17 at 08:30; Status DC Piperacillin Sod/ Tazobactam Sod 4.5 gm/Sodium Chloride 50 ml @ 100 mls/hr Q8HRS IV Last administered on 05/13/17 07:53; Start 05/13/17 at 07:15; Stop 05/13 at 08:30; Status DC Vancomycin HCl 1.25 gm/Sodium Chloride 250 ml @ 166.667 mls/hr 1X ONCE IV ; Start 05/13/17 at 08:00; Stop 05/13/17 at 09:29; Status DC Sodium Chloride 500 ml @ As Directed STK-MED ONCE .ROUTE Last administered on 05/13/17 07:54; Start 05/13/17 at 07:51; Stop 05/13/17 at 07:52; Status DC Doxycycline Hyclate (Vibra-Tab) 100 mg BID PO Last administered on 05/15/17 09 :02; Start 05/13/17 at 09:00 Acetaminophen (Tylenol) 325 mg PRN Q4HRS PRN PO PAIN/TEMP Last administered on 05/14/17 20:06; Start 05/13/17 at 09:15 Amiodarone HCl (Cordarone) 200 mg DAILY PO Last administered on 05/15/17 09:02 ; Start 05/14/17 at 09:50 Aspirin (Children'S Aspirin) 81 mg DAILY PO Last administered on 05/15/17 09: 02; Start 05/14/17 at 11:00 Finasteride (Proscar) 5 mg DAILY PO Last administered on 05/15/17 09:02; Start 05/14/17 at 10:00 Guaifenesin (Mucinex Er) 600 mg PRN BID PRN PO CONGESTION Last administered on 05/13/17 10:21; Start 05/13/17 at 09:15 Acetaminophen/ Hydrocodone Bitart (Lortab 5/325) 1 tab PRN Q4HRS PRN PO PAIN Last administered on 05/15/17 06:09; Start 05/13/17 at 09:15 Metoprolol Tartrate (Lopressor) 25 mg BID PO Last administered on 05/15/17 09: 03; Start 05/13/17 at 10:00 Pantoprazole Sodium (Protonix) 40 mg DAILYAC PO Last administered on 05/15/17 09:02; Start 05/13/17 at 10:00 Tamsulosin HCl (Flomax) 0.8 mg QHS PO Last administered on 05/14/17 20:06; Start 05/13/17 at 21:00 Warfarin Sodium (Coumadin) 4 mg DAILY16 PO Last administered on 05/13/17 16:20 ; Start 05/13/17 at 16:00; Stop 05/14/17 at 07:39; Status DC Non-Formulary Medication 1 vial QID NEB ; Start 05/13/17 at 13:00; Stop 05/13/17 at 13:00; Status DC Non-Formulary Medication 2 puff BID IH ; Start 05/13/17 at 21:00; Stop 05/13/17 at 21:00; Status DC Albuterol Sulfate (Ventolin) 2.5 mg STK-MED ONCE .ROUTE Last administered on 09:31; Start 05/13/17 at 09:22; Stop 05/13/17 at 09:23; Status DC Budesonide (Pulmicort) 0.5 mg STK-MED ONCE .ROUTE Last administered on 09:30; Start 05/13/17 at 09:22; Stop 05/13/17 at 09:23; Status DC Albuterol Sulfate (Ventolin) 2.5 mg RTQID NEB Last administered on 05/15/17 16 :16; Start 05/13/17 at 12:00 Budesonide (Pulmicort) 0.5 mg RTBID NEB Last administered on 05/15/17 11:01; Start 05/13/17 at 20:00 Docusate Sodium (Colace) 100 mg PRN DAILY PRN PO CONSTIPATION Last administered on 05/13/17 11:02; Start 05/13/17 at 10:30 Bupropion HCl (Wellbutrin Xl) 150 mg DAILYWBKFT PO Last administered on 09:02; Start 05/14/17 at 08:00 Mirtazapine (Remeron) 7.5 mg QHS PO Last administered on 05/14/17 20:05; Start 05/13/17 at 21:00 Atorvastatin Calcium (Lipitor) 40 mg QHS PO Last administered on 05/14/17 20:06 ; Start 05/13/17 at 21:00 Warfarin Sodium (Coumadin Per Pharmacy) 1 each PRN DAILY PRN MC SEE COMMENTS Last administered on 05/15/17 08:41; Start 05/13/17 at 13:15 Warfarin Sodium (Coumadin) 3 mg 1X WARF ONCE PO Last administered on 05/14/17 15:59; Start 05/14/17 at 16:00; Stop 05/14/17 at 16:01; Status DC Magnesium Sulfate 50 ml @ 25 mls/hr 1X ONCE IV Last administered on 05/14/17 09:11; Start 05/14/17 at 08:30; Stop 05/14/17 at 10:29; Status DC Warfarin Sodium (Coumadin - No Dose Today) 1 each 1X WARF ONCE MC Last administered on 9/10/17at 16:30; Start 05/15/17 at 16:00; Stop 05/15/17 at 16:01 ; Status DC Active Scripts Active Coumadin (Warfarin Sodium) 4 Mg Tablet 4 Mg PO DAILY16 30 Days Flomax (Tamsulosin Hcl) 0.4 Mg Cap.er.24h 0.8 Mg PO QHS 30 Days Pantoprazole Sodium 40 Mg Tablet.dr 40 Mg PO DAILYAC 30 Days Reported Lipitor (Atorvastatin Calcium) 40 Mg Tablet 1 Tab PO QHS Wellbutrin Xl (Bupropion Hcl) 150 Mg Tab.er.24h 1 Tab PO DAILYWBKFT Remeron (Mirtazapine) 15 Mg Tablet 0.5 Tab PO QHS Metoprolol Tartrate 25 Mg Tablet 1 Tab PO BID Hydrocodone-Apap 5-325 (Hydrocodone Bit/Acetaminophen) 1 Each Tablet 1 Tab PO PRN Q4HRS PRN Mucinex (Guaifenesin) 600 Mg Tablet.er 1 Tab PO PRN BID PRN Finasteride 5 Mg Tablet 1 Tab PO DAILY Symbicort 160-4.5 Mcg Inhaler (Budesonide/Formoterol Fumarate) 10.2 Gm Hfa.aer.ad 2 Puff IH BID Aspirin 81 Mg Tab.chew 81 Mg PO DAILY Amiodarone Hcl 200 Mg Tablet 1 Tab PO DAILY Albuterol Sulfate Neb Soln (Albuterol Sulfate) 0.63 Mg/3 Ml Vial.neb 1 Vial NEB QID Tylenol (Acetaminophen) 325 Mg Tablet 1 Tab PO PRN Q4HRS Diagnosis: Problems: (1) Major depressive disorder, recurrent episode (2) Anxiety disorder VERONICA BUTLER MD May 15, 2017 17:34
[2017-05-15 19:41] VITALS: BP 122/60
[2017-05-15] MEDS: TAMSULOSIN 0.4 MG CAP.ER.24H. PO SCH (20:58)
[2017-05-15] MEDS: ATORVASTATIN CALCIUM 20 MG TABLET PO SCH (20:58)
[2017-05-15] MEDS: MIRTAZAPINE 7.5 MG TABLET. PO SCH (20:58)
--- NOTE | 2017-05-15 21:45 | DS ---
DATE OF DISCHARGE: 05/15/2017 DISPOSITION: Back to swing bed. DISCHARGE DIAGNOSES: 1. Aspiration pneumonia. 2. Severe chronic obstructive pulmonary disease. 3. Acute on chronic respiratory failure, requiring oxygen. 4. Bladder outlet obstruction requiring Bowen catheter. 5. Essential hypertension. 6. Hyperlipidemia. 7. Tobacco abuse. 8. Marked debility and deconditioning. 9. Severe protein-calorie malnutrition. 10. Hypomagnesemia. 11. Long-term use of anticoagulants. 12. Normochromic normocytic anemia. HOSPITAL COURSE: This is a 76-year-old male who had a choking episode became hypoxic and has questionable chest x-ray appearing to be aspiration pneumonia. He was treated with IV antibiotics and converted to doxycycline. He has been doing relatively well. He has been eating more. He has been getting catheter clamping with bladder draining and will at some point have the catheter removed to see if he can urinate on his own. He had the Flomax increased several days ago now. OBJECTIVE: VITAL SIGNS: Blood pressure 114/61, pulse 68, pulse ox 94% on 2 liters, temperature 97.5, height 70 inches, weight 113 pounds. GENERAL: A very thin emaciated 76-year-old in no acute distress. He is alert and oriented. HEENT: Color is pale. His nose was patent. His throat was clear. NECK: Supple, without adenopathy. LUNGS: Clear to auscultation with distant breath sounds. CARDIOVASCULAR: Regular rhythm and rate. ABDOMEN: Soft, nontender. EXTREMITIES: Without edema. Muscle tone and condition is poor. LABORATORY DATA: Reviewed. There were no new labs to check today. PLAN: Discharged back to swing bed. JESSICA DOVER DO DR: MARIBEL/radhika JOB#: [id number] / [id number]
--- NOTE | 2017-05-16 01:25 | PN ---
DATE: 05/15/2017 This note covers elements in my initial of 05/15/2017. SUBJECTIVE: The patient was seen individually evening of 05/15/2017. The patient is in ICU bed 2. He remains withdrawn, somewhat depressed, but states he feels "better." He states he has more energy. REVIEW OF SYSTEMS: Ambulation impaired. He is in a Broda chair in his room. No CV, , pulmonary, eye system symptoms on review. MENTAL STATUS EXAM: Oriented to himself and situation. Speech moderate latency, often responses monosyllabic. Abstraction fair, computation impaired, language function intact. Mood and affect is improved. No suicidal or homicidal ideation. LABORATORY DATA: Reviewed. IMPRESSION: Major depressive disorder, recurrent; anxiety disorder, unspecified. Rest unchanged. PLAN: Continue current psychotropics, Wellbutrin-XL 150 mg a day, Abilify at current dosage. Adjust further as clinically indicated. MAN Dorian BUTLER MD DR: ELLIOT/radhika JOB#: [id number] / [id number]
[2017-05-16 04:56] VITALS: BP 142/67
[2017-05-16] MEDS: ALBUTEROL SULFATE 2.5 MG/3 ML NEBU. NEB SCH (05:16)
[2017-05-16 08:02] LABS: ALBUMIN 2.6 g/dL (3.4-5.0); ALBUMIN/GLOBULIN RATIO 0.9 (1.0-1.7); CALCIUM 8.9 mg/dL (8.5-10.1); POTASSIUM 4.7 mmol/L (3.5-5.1); TOTAL BILIRUBIN 0.3 mg/dL (0.2-1.0); TOTAL PROTEIN 5.4 g/dL (6.4-8.2)
[2017-05-16 08:09] LABS: BASO # 0.1 x10^3/uL (0.0-0.2); BASO % 1 % (0-3); EOS # 0.5 x10^3/uL (0.0-0.7); EOS % 8 % (0-3); HEMATOCRIT 25.5 % (39.0-53.0); HEMOGLOBIN 8.4 g/dL (13.0-17.5); LYMPH # 0.8 x10^3/uL (1.0-4.8); LYMPH % 12 % (24-48); MEAN CORPUSCULAR HEMOGLOBIN 31 pg (25-35); MEAN CORPUSCULAR HGB CONC 33 g/dL (31-37); MEAN CORPUSCULAR VOLUME 93 fL (79-100); MONO # 0.7 x10^3/uL (0.0-1.1); MONO % 10 % (0-9); NEUT # 4.9 x10^3uL (1.8-7.7); NEUT % 69 % (31-73); PLATELET COUNT 232 x10^3/uL (140-400); RED BLOOD COUNT 2.76 x10^6/uL (4.30-5.70); RED CELL DISTRIBUTION WIDTH 16.2 % (11.5-14.5); WHITE BLOOD COUNT 7.1 x10^3/uL (4.0-11.0)
[2017-05-16] MEDS: BUDESONIDE 0.5 MG/2 ML NEBU NEB SCH (08:17)
[2017-05-16 08:19] VITALS: BP 111/54
[2017-05-16] MEDS: buPROPion XL 150 MG TAB.ER.24H PO SCH (08:39)
[2017-05-16] MEDS: DOXYCYCLINE HYCLATE 100 MG TABLET PO SCH (08:39)
[2017-05-16] MEDS: ASPIRIN 81 MG TAB.CHEW PO SCH (08:39)
[2017-05-16] MEDS: PANTOPRAZOLE 40 MG TABLET. PO SCH (08:39)
[2017-05-16] MEDS: FINASTERIDE 5 MG TABLET PO SCH (08:40)
[2017-05-16] MEDS: AMIODARONE HCL 200 MG TABLET PO SCH (08:40)
[2017-05-16] MEDS ORDERED: METOPROLOL SUCC 24HR ER 25 MG TAB.ER.24H. PO SCH (09:00)
[2017-05-16] MEDS ORDERED: METOPROLOL TART IMMED RELEASE 25 MG TABLET PO SCH (09:00)
[2017-05-16 11:14] VITALS: BP 106/54
[2017-05-16] MEDS ORDERED: DOCU-109 PO (13:39)
[2017-05-16] MEDS ORDERED: DOXY100C2 PO (13:39)
--- NOTE | 2017-05-16 21:50 | PDOC ---
Exam Evens Demential Exam: Evens Note: Please also refer to the separate dictated note~for this date of service dictated separately.~Patient seen individually. Discussed the patient with Nursing staff reviewed the chart.~Reviewed interim history and current functioning. Reviewed vital signs,~Labs/ Radiology~and current medications noted below. Continue current treatment with the changes noted in the dictated addendum note Assessment: Vital Signs: Vital Signs Date Time Temp Pulse Resp B/P (MAP) Pulse Ox O2 Delivery O2 Flow Rate FiO2 05/16/17 11:14 97.0 57 20 106/54 (71) 96 Nasal Cannula 2.0 I&O Intake and Output 05/17/17 07:00 Intake Total 440 ml Balance 440 ml Intake Oral 440 ml # Bowel Movements 1 Labs: Laboratory Tests Test 05/16/17 05:38 White Blood Count 7.1 x10^3/uL (4.0-11.0) Red Blood Count 2.76 x10^6/uL (4.30-5.70) L Hemoglobin 8.4 g/dL (13.0-17.5) L Hematocrit 25.5 % (39.0-53.0) L Mean Corpuscular Volume 93 fL (79-100) Mean Corpuscular Hemoglobin 31 pg (25-35) Mean Corpuscular Hemoglobin Concent 33 g/dL (31-37) Red Cell Distribution Width 16.2 % (11.5-14.5) H Platelet Count 232 x10^3/uL (140-400) Neutrophils (%) (Auto) 69 % (31-73) Lymphocytes (%) (Auto) 12 % (24-48) L Monocytes (%) (Auto) 10 % (0-9) H Eosinophils (%) (Auto) 8 % (0-3) H Basophils (%) (Auto) 1 % (0-3) Neutrophils # (Auto) 4.9 x10^3uL (1.8-7.7) Lymphocytes # (Auto) 0.8 x10^3/uL (1.0-4.8) L Monocytes # (Auto) 0.7 x10^3/uL (0.0-1.1) Eosinophils # (Auto) 0.5 x10^3/uL (0.0-0.7) Basophils # (Auto) 0.1 x10^3/uL (0.0-0.2) Prothrombin Time 29.4 SEC (9.4-11.4) H Prothrombin Time INR 2.9 (0.9-1.1) H Sodium Level 147 mmol/L (136-145) H Potassium Level 4.7 mmol/L (3.5-5.1) Chloride Level 110 mmol/L (98-107) H Carbon Dioxide Level 37 mmol/L (21-32) H Anion Gap 0 (6-14) L Blood Urea Nitrogen 38 mg/dL (8-26) H Creatinine 1.0 mg/dL (0.7-1.3) Estimated GFR (Cockcroft-Gault) 73.0 BUN/Creatinine Ratio 38 (6-20) H Glucose Level 97 mg/dL (70-99) Calcium Level 8.9 mg/dL (8.5-10.1) Total Bilirubin 0.3 mg/dL (0.2-1.0) Aspartate Amino Transferase (AST) 24 U/L (15-37) Alanine Aminotransferase (ALT) 46 U/L (16-63) Alkaline Phosphatase 118 U/L (46-116) H Total Protein 5.4 g/dL (6.4-8.2) L Albumin 2.6 g/dL (3.4-5.0) L Albumin/Globulin Ratio 0.9 (1.0-1.7) L Current Medications: Meds: Current Medications Piperacillin Sod/ Tazobactam Sod (Zosyn Per Pharmacy) 1 each PRN DAILY PRN MC SEE COMMENTS; Start 05/13/17 at 06:45; Stop 05/13/17 at 08:30; Status DC Vancomycin HCl (Vanco Per Pharmacy) 1 each PRN DAILY PRN MC SEE COMMENTS; Start 05/13/17 at 06:45; Stop 05/13/17 at 08:30; Status DC Piperacillin Sod/ Tazobactam Sod 4.5 gm/Sodium Chloride 50 ml @ 100 mls/hr Q8HRS IV Last administered on 05/13/17t 07:53; Start 05/13/17 at 07:15; Stop 05/13 at 08:30; Status DC Vancomycin HCl 1.25 gm/Sodium Chloride 250 ml @ 166.667 mls/hr 1X ONCE IV ; Start 05/13/17 at 08:00; Stop 05/13/17 at 09:29; Status DC Sodium Chloride 500 ml @ As Directed STK-MED ONCE .ROUTE Last administered on 05/13/17 07:54; Start 05/13/17 at 07:51; Stop 05/13/17 at 07:52; Status DC Doxycycline Hyclate (Vibra-Tab) 100 mg BID PO Last administered on 05/16/17 08 :39; Start 05/13/17 at 09:00; Stop 05/16/17 at 13:52; Status DC Acetaminophen (Tylenol) 325 mg PRN Q4HRS PRN PO PAIN/TEMP Last administered on 05/14/17 20:06; Start 05/13/17 at 09:15; Stop 05/16/17 at 13:52; Status DC Amiodarone HCl (Cordarone) 200 mg DAILY PO Last administered on 05/16/17 08:40 ; Start 05/14/17 at 09:50; Stop 05/16/17 at 13:52; Status DC Aspirin (Children'S Aspirin) 81 mg DAILY PO Last administered on 05/16/17 08: 39; Start 05/14/17 at 11:00; Stop 05/16/17 at 13:52; Status DC Finasteride (Proscar) 5 mg DAILY PO Last administered on 05/16/17 08:40; Start 05/14/17 at 10:00; Stop 05/16/17 at 13:52; Status DC Guaifenesin (Mucinex Er) 600 mg PRN BID PRN PO CONGESTION Last administered on 05/13/17 10:21; Start 05/13/17 at 09:15; Stop 05/16/17 at 13:52; Status DC Acetaminophen/ Hydrocodone Bitart (Lortab 5/325) 1 tab PRN Q4HRS PRN PO PAIN Last administered on 05/15/17 20:58; Start 05/13/17 at 09:15; Stop 05/16/17 at 13:52; Status DC Metoprolol Tartrate (Lopressor) 25 mg BID PO Last administered on 05/15/17 20: 58; Start 05/13/17 at 10:00; Stop 05/16/17 at 07:34; Status DC Pantoprazole Sodium (Protonix) 40 mg DAILYAC PO Last administered on 05/16/17 08:39; Start 05/13/17 at 10:00; Stop 05/16/17 at 13:52; Status DC Tamsulosin HCl (Flomax) 0.8 mg QHS PO Last administered on 05/15/17 20:58; Start 05/13/17 at 21:00; Stop 05/16/17 at 13:52; Status DC Warfarin Sodium (Coumadin) 4 mg DAILY16 PO Last administered on 05/13/17 16:20 ; Start 05/13/17 at 16:00; Stop 05/14/17 at 07:39; Status DC Non-Formulary Medication 1 vial QID NEB ; Start 05/13/17 at 13:00; Stop 05/13/17 at 13:00; Status DC Non-Formulary Medication 2 puff BID IH ; Start 05/13/17 at 21:00; Stop 05/13/17 at 21:00; Status DC Albuterol Sulfate (Ventolin) 2.5 mg STK-MED ONCE .ROUTE Last administered on 09:31; Start 05/13/17 at 09:22; Stop 05/13/17 at 09:23; Status DC Budesonide (Pulmicort) 0.5 mg STK-MED ONCE .ROUTE Last administered on 09:30; Start 05/13/17 at 09:22; Stop 05/13/17 at 09:23; Status DC Albuterol Sulfate (Ventolin) 2.5 mg RTQID NEB Last administered on 05/16/17 05 :16; Start 05/13/17 at 12:00; Stop 05/16/17 at 13:52; Status DC Budesonide (Pulmicort) 0.5 mg RTBID NEB Last administered on 05/16/17 08:17; Start 05/13/17 at 20:00; Stop 05/16/17 at 13:52; Status DC Docusate Sodium (Colace) 100 mg PRN DAILY PRN PO CONSTIPATION Last administered on 05/13/17 11:02; Start 05/13/17 at 10:30; Stop 05/16/17 at 13:52; Status DC Bupropion HCl (Wellbutrin Xl) 150 mg DAILYWBKFT PO Last administered on 08:39; Start 05/14/17 at 08:00; Stop 05/16/17 at 13:52; Status DC Mirtazapine (Remeron) 7.5 mg QHS PO Last administered on 05/15/17 20:58; Start 05/13/17 at 21:00; Stop 05/16/17 at 13:52; Status DC Atorvastatin Calcium (Lipitor) 40 mg QHS PO Last administered on 05/15/17 20: 58; Start 05/13/17 at 21:00; Stop 05/16/17 at 13:52; Status DC Warfarin Sodium (Coumadin Per Pharmacy) 1 each PRN DAILY PRN MC SEE COMMENTS Last administered on 05/15/17 08:41; Start 05/13/17 at 13:15; Stop 05/16/17 at 13:52; Status DC Warfarin Sodium (Coumadin) 3 mg 1X WARF ONCE PO Last administered on 05/14/17 15:59; Start 05/14/17 at 16:00; Stop 05/14/17 at 16:01; Status DC Magnesium Sulfate 50 ml @ 25 mls/hr 1X ONCE IV Last administered on 05/14/17 09:11; Start 05/14/17 at 08:30; Stop 05/14/17 at 10:29; Status DC Warfarin Sodium (Coumadin - No Dose Today) 1 each 1X WARF ONCE MC Last administered on 05/15/17 16:30; Start 05/15/17 at 16:00; Stop 05/15/17 at 16:01 ; Status DC Metoprolol Succinate (Toprol Xl) 25 mg DAILY PO ; Start 05/16/17 at 09:00; Stop 05/16/17 at 09:00; Status DC Metoprolol Tartrate (Lopressor) 25 mg BID PO ; Start 05/16/17 at 09:00; Stop 07/22 at 13:52; Status DC Active Scripts Active Coumadin (Warfarin Sodium) 4 Mg Tablet 4 Mg PO DAILY16 30 Days Flomax (Tamsulosin Hcl) 0.4 Mg Cap.er.24h 0.8 Mg PO QHS 30 Days Pantoprazole Sodium 40 Mg Tablet.dr 40 Mg PO DAILYAC 30 Days Reported Doxycycline Hyclate 100 Mg Capsule 1 Cap PO BID Colace (Docusate Sodium) 100 Mg Capsule 1 Cap PO PRN DAILY PRN Lipitor (Atorvastatin Calcium) 40 Mg Tablet 1 Tab PO QHS Wellbutrin Xl (Bupropion Hcl) 150 Mg Tab.er.24h 1 Tab PO DAILYWBKFT Remeron (Mirtazapine) 15 Mg Tablet 0.5 Tab PO QHS Metoprolol Tartrate 25 Mg Tablet 1 Tab PO BID Hydrocodone-Apap 5-325 (Hydrocodone Bit/Acetaminophen) 1 Each Tablet 1 Tab PO PRN Q4HRS PRN Mucinex (Guaifenesin) 600 Mg Tablet.er 1 Tab PO PRN BID PRN Finasteride 5 Mg Tablet 1 Tab PO DAILY Symbicort 160-4.5 Mcg Inhaler (Budesonide/Formoterol Fumarate) 10.2 Gm Hfa.aer.ad 2 Puff IH BID Aspirin 81 Mg Tab.chew 81 Mg PO DAILY Amiodarone Hcl 200 Mg Tablet 1 Tab PO DAILY Albuterol Sulfate Neb Soln (Albuterol Sulfate) 0.63 Mg/3 Ml Vial.neb 1 Vial NEB QID Tylenol (Acetaminophen) 325 Mg Tablet 1 Tab PO PRN Q4HRS Diagnosis: Problems: (1) Major depressive disorder, recurrent episode (2) Anxiety disorder VERONICA BUTLER MD May 16, 2017 21:50
--- NOTE | 2017-05-17 05:02 | PN ---
DATE: 05/16/2017 This note covers elements not covered in my initial note of 05/16/2017 SUBJECTIVE: The patient seen individually in the ICU, bed 2, evening of 05/16/2017. Discussed with nursing staff, reviewed the chart. Overall, the patient's appetite is much improved. He is a little more awake, alert during the day, but subjectively still admits to having low energy, somewhat depressed. REVIEW OF SYSTEMS: Positive for some tiredness. No CV, , pulmonary, eye system symptoms on review. MENTAL STATUS EXAMINATION: Reasonably oriented. Speech is coherent, had some latency. Abstraction fair, computation impaired, language function intact, attention span short. Mood and affect still somewhat depressed, but improved. No psychotic symptoms, suicidal or homicidal ideation. This note covers elements not covered in my initial note of 05/16/2017. DIAGNOSIS: As mentioned in my initial note. PLAN: Continue Wellbutrin-XL 150 mg a day, Abilify may be considered as an augmentation on Wellbutrin, continue Remeron 7.5 mg at bedtime. The patient is being transitioned from the ICU to custodial care and I will be happy to follow him there if requested. VERONICA BUTLER MD DR: ELLIOT/radhika JOB#: [id number] / [id number]
--- NOTE | 2017-05-20 06:16 | ACF ---
Admission Criteria Forms COPD Clinical Indications for Admission to Inpatient Care ([place]/check or initial the applicable condition/criteria) Admission is indicated for ANY ONE of the following (1)(2)(3): [X]I. Acute exacerbation by high-risk comorbidity(e.g., pneumonia, dysrhythmia, heart failure, pleural effusion, pneumothorax) or severe underlying COPD (eg, baseline FEV1 less than 50% predicted) [ ]II. Inpatient admission required[A] rather than observation care (see Chronic Obstructive Pulmonary Disease: Observation Care) because of ANY ONE of the following: [ ]a) New or pre-existing signs or symptoms of COPD (eg, dyspnea or Tachypnea at rest or with minimal activity) that persist despite outpatient and observation care treatment [ ]b) New-onset hypoxemia (room air SaO2 less than 90%, PO2 less than 60 mm Hg (8.0 kPa)) that persists despite outpatient and observation care treatment [ ]c) Worsening of pre-existing hypoxemia (eg, new or increased requirement for supplemental oxygen to maintain oxygenation at baseline level) that persists despite outpatient and observation care treatment, with oxygen treatment needs performable only in acute inpatient setting [ ]d) Hypercarbia (PCO2 greater than 40 mm Hg (5.3 kPa))-induced respiratory acidosis (pH less than 7.35) that persists despite outpatient and observation care treatment [ ]e) Supplemental oxygen or respiratory treatments for over 24 hours that are performable only in acute inpatient setting [ ]f) Chest tube placement with active evacuation (e.g., suction, drainage) (6) [ ]g) Other condition, treatment or monitoring requiring inpatient admission [ ]III. Planned invasive surgical or diagnostic procedures requiring acute- care hospitalization [ ]IV. Acute respiratory failure (e.g., uncompensated hypercarbia, severe hypoxemia) [ ]V. Severe comorbid condition (e.g., severe steroid myopathy, acute vertebral fracture) that has acutely worsened pulmonary function [ ]. Altered mental status that is severe or persistent Extended stay beyond goal length of stay may be needed for (29)(30)(31)(32)(33) : [ ]a ) Respiratory Failure. [ ]b) Severe or persisting hypoxemia or hypercarbia [ ]c) Severe or persistent dyspnea [ ]d) Clinically significant Comorbidities (e.g. chronic heart failure, atrial fibrillation with rapid response, pneumonia)(36) [ ]e) Malnutrition (33) The original [facility] content created by [facility] has been revised. The portions of the content which have been revised are identified through the use of italic text, and [facility] has neither reviewed nor approved the modified material. All other unmodified content is copyright [facility]. Please see references footnoted in the original [facility] edition 2015 Admission Criteria Met?: Yes DAVID CRANDALL May 20, 2017 06:16
== END 2017-05-16 13:51 | disposition home or self-care (01) | DRG 177 ==
LOC: ICU 02:15
PROVIDERS: ADMIT Family Medicine; ATTEND Family Medicine
DX: J69.0 Pneumonitis due to inhalation of food and vomit (principal); E43 Unspecified severe protein-calorie malnutrition; J96.21 Acute and chronic respiratory failure with hypoxia; F33.9 Major depressive disorder, recurrent, unspecified; N13.8 Other obstructive and reflux uropathy; Z68.1 Body mass index [BMI] 19.9 or less, adult; E83.42 Hypomagnesemia; N32.0 Bladder-neck obstruction; J44.9 Chronic obstructive pulmonary disease, unspecified; D64.9 Anemia, unspecified; E78.2 Mixed hyperlipidemia; F17.210 Nicotine dependence, cigarettes, uncomplicated; F41.9 Anxiety disorder, unspecified; I10 Essential (primary) hypertension; I25.10 Atherosclerotic heart disease of native coronary artery without angina pectoris; N40.1 Benign prostatic hyperplasia with lower urinary tract symptoms; Z79.01 Long term (current) use of anticoagulants; Z80.7 Family history of other malignant neoplasms of lymphoid, hematopoietic and related tissues; Z82.49 Family history of ischemic heart disease and other diseases of the circulatory system; Z83.3 Family history of diabetes mellitus; Z95.1 Presence of aortocoronary bypass graft; Z98.41 Cataract extraction status, right eye; Z98.42 Cataract extraction status, left eye
CPT/HCPCS: 36415; 71010; 80053; 82274; 83605; 83735; 85025; 85610; 87040; 87205; 87641; 93005; 94640; 94760; J2543; J3370; J3475; J7040; J7050; J7613; J7626; 97110; 97530

== ENCOUNTER 2017-05-16 13:00 | Inpatient (IN) | payer MEDICARE, BC ==
[~2017-05-16] VITALS: Ht 177.8 cm; Wt 52.2 kg
[~2017-05-16 13:00] MED LIST changes: +ATOR40TA PO; +BUPR150T15 PO; +MIRT15TA PO
[2017-05-16] MEDS ORDERED: DOXY100C2 PO (13:39)
[2017-05-16] MEDS ORDERED: DOCU-109 PO (13:39)
[2017-05-16] MEDS ORDERED: ACETAMINOPHEN 325 MG TABLET PO PRN (14:45)
[2017-05-16] MEDS ORDERED: HYDROcodone/APAP 5/325MG 1 TAB TABLET PO PRN (14:45)
[2017-05-16] MEDS ORDERED: DOCUSATE SODIUM 100 MG CAPSULE PO PRN (14:45)
[2017-05-16 15:09] VITALS: BP 127/60
[2017-05-16] MEDS: ALBUTEROL SULFATE 2.5 MG/3 ML NEBU. NEB SCH ×2 (15:24→20:30)
[2017-05-16] MEDS ORDERED: NON FORMULARY ITEM (Albuterol Sulfate (Albuterol Sulfate Neb Soln) 1 VIAL) NEB SCH (17:00)
[2017-05-16 18:27] VITALS: BP 141/64
[2017-05-16] MEDS ORDERED: BUDESONIDE 0.5 MG/2 ML NEBU NEB SCH (20:00)
[2017-05-16 20:49] VITALS: BP 141/64
[2017-05-16] MEDS ORDERED: DOXYCYCLINE HYCLATE 100 MG TABLET PO SCH (21:00)
[2017-05-16] MEDS ORDERED: MIRTAZAPINE 7.5 MG TABLET. PO SCH (21:00)
[2017-05-16] MEDS ORDERED: TAMSULOSIN 0.4 MG CAP.ER.24H. PO SCH (21:00)
[2017-05-16] MEDS ORDERED: METOPROLOL TART IMMED RELEASE 25 MG TABLET PO SCH (21:00)
[2017-05-16] MEDS ORDERED: ATORVASTATIN CALCIUM 20 MG TABLET PO SCH (21:00)
[2017-05-17] MEDS ORDERED: PANTOPRAZOLE 40 MG TABLET. PO SCH (07:30)
[2017-05-17] MEDS ORDERED: buPROPion XL 150 MG TAB.ER.24H PO SCH (08:00)
[2017-05-17] MEDS ORDERED: AMIODARONE HCL 200 MG TABLET PO SCH (09:00)
[2017-05-17] MEDS ORDERED: FINASTERIDE 5 MG TABLET PO SCH (09:00)
[2017-05-17] MEDS ORDERED: ASPIRIN 81 MG TAB.CHEW PO SCH (09:00)
--- NOTE | 2017-05-23 12:43 | PDOC3 ---
Discharge Summary Visit Information Date of Admission: May 16, 2017 Date of Discharge: May 17, 2017 Problems: Brief Hospital Course Allergies Allergies Coded Allergies Type Severity Reaction Last Updated Verified No Known Drug Allergies 05/03/17 No Brief Hospital Course Mr. Weinstein is a 76 old [sex] who presented with [ ] Discharge Information Dischare Medications Current Medications Acetaminophen (Tylenol) 325 mg PRN Q4HRS PRN PO PAIN/TEMP; Start 05/16/17 at 14 :45; Stop 05/17/17 at 14:16; Status DC Amiodarone HCl (Cordarone) 200 mg DAILY PO ; Start 05/17/17 at 09:00; Stop 05/17 at 14:16; Status DC Aspirin (Children'S Aspirin) 81 mg DAILY PO ; Start 05/17/17 at 09:00; Stop 08/21 at 14:16; Status DC Bupropion HCl (Wellbutrin Xl) 150 mg DAILYWBKFT PO ; Start 05/17/17 at 08:00; Stop 05/17/17 at 14:16; Status DC Docusate Sodium (Colace) 100 mg PRN DAILY PRN PO CONSTIPATION; Start 05/16/17 at 14:45; Stop 05/17/17 at 14:16; Status DC Finasteride (Proscar) 5 mg DAILY PO ; Start 05/17/17 at 09:00; Stop 05/17/17 at 14:16; Status DC Guaifenesin (Mucinex Er) 600 mg PRN BID PRN PO CONGESTION; Start 05/16/17 at 14 :45; Stop 05/17/17 at 14:16; Status DC Acetaminophen/ Hydrocodone Bitart (Lortab 5/325) 1 tab PRN Q4HRS PRN PO PAIN; Start 05/16/17 at 14:45; Stop 05/17/17 at 14:16; Status DC Metoprolol Tartrate (Lopressor) 25 mg BID PO Last administered on 05/16/17t 20: 49; Start 05/16/17 at 21:00; Stop 05/17/17 at 14:16; Status DC Mirtazapine (Remeron) 7.5 mg QHS PO Last administered on 05/16/17 20:47; Start 05/16/17 at 21:00; Stop 05/17/17 at 14:16; Status DC Pantoprazole Sodium (Protonix) 40 mg DAILYAC PO ; Start 05/17/17 at 07:30; Stop 05/17/17 at 14:16; Status DC Tamsulosin HCl (Flomax) 0.8 mg QHS PO Last administered on 05/16/17 20:48; Start 05/16/17 at 21:00; Stop 05/17/17 at 14:16; Status DC Warfarin Sodium (Coumadin - No Dose Today) 1 each 1X WARF ONCE MC Last administered on 05/16/17 16:00; Start 05/16/17 at 16:00; Stop 05/16/17 at 16:01 ; Status DC Non-Formulary Medication 1 vial QID NEB ; Start 05/16/17 at 17:00; Status UNV Atorvastatin Calcium (Lipitor) 40 mg QHS PO Last administered on 05/16/17 20: 48; Start 05/16/17 at 21:00; Stop 05/17/17 at 14:16; Status DC Budesonide (Pulmicort) 0.5 mg RTBID NEB Last administered on 05/16/17 20:30; Start 05/16/17 at 20:00; Stop 05/17/17 at 14:16; Status DC Doxycycline Hyclate (Vibra-Tab) 100 mg BID PO Last administered on 05/16/17 20 :47; Start 05/16/17 at 21:00; Stop 05/17/17 at 14:16; Status DC Albuterol Sulfate (Ventolin) 2.5 mg RTQID NEB Last administered on 05/16/17 20 :30; Start 05/16/17 at 16:00; Stop 05/17/17 at 14:16; Status DC Warfarin Sodium (Coumadin Per Pharmacy) 1 each PRN DAILY PRN MC SEE COMMENTS Last administered on 05/16/17 15:25; Start 05/16/17 at 15:30; Stop 05/17/17 at 14:16; Status DC Active Scripts Active Coumadin (Warfarin Sodium) 4 Mg Tablet 4 Mg PO DAILY16 30 Days Flomax (Tamsulosin Hcl) 0.4 Mg Cap.er.24h 0.8 Mg PO QHS 30 Days Pantoprazole Sodium 40 Mg Tablet.dr 40 Mg PO DAILYAC 30 Days Reported Doxycycline Hyclate 100 Mg Capsule 1 Cap PO BID Colace (Docusate Sodium) 100 Mg Capsule 1 Cap PO PRN DAILY PRN Lipitor (Atorvastatin Calcium) 40 Mg Tablet 1 Tab PO QHS Wellbutrin Xl (Bupropion Hcl) 150 Mg Tab.er.24h 1 Tab PO DAILYWBKFT Remeron (Mirtazapine) 15 Mg Tablet 0.5 Tab PO QHS Metoprolol Tartrate 25 Mg Tablet 1 Tab PO BID Hydrocodone-Apap 5-325 (Hydrocodone Bit/Acetaminophen) 1 Each Tablet 1 Tab PO PRN Q4HRS PRN Mucinex (Guaifenesin) 600 Mg Tablet.er 1 Tab PO PRN BID PRN Finasteride 5 Mg Tablet 1 Tab PO DAILY Symbicort 160-4.5 Mcg Inhaler (Budesonide/Formoterol Fumarate) 10.2 Gm Hfa.aer.ad 2 Puff IH BID Aspirin 81 Mg Tab.chew 81 Mg PO DAILY Amiodarone Hcl 200 Mg Tablet 1 Tab PO DAILY Albuterol Sulfate Neb Soln (Albuterol Sulfate) 0.63 Mg/3 Ml Vial.neb 1 Vial NEB QID Tylenol (Acetaminophen) 325 Mg Tablet 1 Tab PO PRN Q4HRS JESSICA DOVER DO May 23, 2017 12:43
--- NOTE | 2017-05-23 12:56 | PDOC3 ---
Discharge Summary Visit Information Date of Admission: May 16, 2017 Date of Discharge: May 17, 2017 Final Diagnosis GE DIAGNOSES: 1. Aspiration pneumonia. 2. Severe chronic obstructive pulmonary disease. 3. Acute on chronic respiratory failure, requiring oxygen. 4. Bladder outlet obstruction requiring Bowen catheter. 5. Essential hypertension. 6. Hyperlipidemia. 7. Tobacco abuse. 8. Marked debility and deconditioning. 9. Severe protein-calorie malnutrition. 10. Hypomagnesemia. 11. Long-term use of anticoagulants. 12. Normochromic normocytic anemia. 13.LETHAL CARDIAC ARRTHYMIA Problems: Brief Hospital Course Allergies Allergies Coded Allergies Type Severity Reaction Last Updated Verified No Known Drug Allergies 05/03/17 No Brief Hospital Course Mr. Weinstein is a 76 old MALE WHO WAS DISCHARGED FROM HOSPITALIZATION TO THE SWING BED UNIT ON 05/16. HE WAS DOING WELL, WAS EATING BETTER, SITTING UP AND AMBULATING AROUND HIS ROOM. HIS INR WAS THERAPEUTIC. HE HAD NO SPECIFIC COMPLAINTS. ON THE MORNING OF 05/17 THE NURSE CHECKED ON HIM AT 0500 AND HE WAS FINE IN BED. THE LAB WENT IN TO DRAW BLOOD AT 0530 AND HE WAS FOUND ON THE FLOOR WITH NO PULSE OR RESPIRATIONS. I BELIEVE HE SUFFERED A LETHAL CARDIAC ARRTHYMIA. HE WAS NOT ON TELEMETRY HE WAS ON SWING BED STATUS. Discharge Information Condition at Discharge: / Disposition/Orders: Dischare Medications Current Medications Acetaminophen (Tylenol) 325 mg PRN Q4HRS PRN PO PAIN/TEMP; Start 05/16/17 at 14 :45; Stop 05/17/17 at 14:16; Status DC Amiodarone HCl (Cordarone) 200 mg DAILY PO ; Start 05/17/17 at 09:00; Stop 05/17 at 14:16; Status DC Aspirin (Children'S Aspirin) 81 mg DAILY PO ; Start 05/17/17 at 09:00; Stop 08/21 at 14:16; Status DC Bupropion HCl (Wellbutrin Xl) 150 mg DAILYWBKFT PO ; Start 05/17/17 at 08:00; Stop 05/17/17 at 14:16; Status DC Docusate Sodium (Colace) 100 mg PRN DAILY PRN PO CONSTIPATION; Start 05/16/17 at 14:45; Stop 05/17/17 at 14:16; Status DC Finasteride (Proscar) 5 mg DAILY PO ; Start 05/17/17 at 09:00; Stop 05/17/17 at 14:16; Status DC Guaifenesin (Mucinex Er) 600 mg PRN BID PRN PO CONGESTION; Start 05/16/17 at 14 :45; Stop 05/17/17 at 14:16; Status DC Acetaminophen/ Hydrocodone Bitart (Lortab 5/325) 1 tab PRN Q4HRS PRN PO PAIN; Start 05/16/17 at 14:45; Stop 05/17/17 at 14:16; Status DC Metoprolol Tartrate (Lopressor) 25 mg BID PO Last administered on 05/16/17 20: 49; Start 05/16/17 at 21:00; Stop 05/17/17 at 14:16; Status DC Mirtazapine (Remeron) 7.5 mg QHS PO Last administered on 05/16/17 20:47; Start 05/16/17 at 21:00; Stop 05/17/17 at 14:16; Status DC Pantoprazole Sodium (Protonix) 40 mg DAILYAC PO ; Start 05/17/17 at 07:30; Stop 05/17/17 at 14:16; Status DC Tamsulosin HCl (Flomax) 0.8 mg QHS PO Last administered on 05/16/17 20:48; Start 05/16/17 at 21:00; Stop 05/17/17 at 14:16; Status DC Warfarin Sodium (Coumadin - No Dose Today) 1 each 1X WARF ONCE MC Last administered on 05/16/17 16:00; Start 05/16/17 at 16:00; Stop 05/16/17 at 16:01 ; Status DC Non-Formulary Medication 1 vial QID NEB ; Start 05/16/17 at 17:00; Status UNV Atorvastatin Calcium (Lipitor) 40 mg QHS PO Last administered on 05/16/17 20: 48; Start 05/16/17 at 21:00; Stop 05/17/17 at 14:16; Status DC Budesonide (Pulmicort) 0.5 mg RTBID NEB Last administered on 05/16/17 20:30; Start 05/16/17 at 20:00; Stop 05/17/17 at 14:16; Status DC Doxycycline Hyclate (Vibra-Tab) 100 mg BID PO Last administered on 05/16/17 20 :47; Start 05/16/17 at 21:00; Stop 05/17/17 at 14:16; Status DC Albuterol Sulfate (Ventolin) 2.5 mg RTQID NEB Last administered on 05/16/17 20 :30; Start 05/16/17 at 16:00; Stop 05/17/17 at 14:16; Status DC Warfarin Sodium (Coumadin Per Pharmacy) 1 each PRN DAILY PRN MC SEE COMMENTS Last administered on 05/16/17 15:25; Start 05/16/17 at 15:30; Stop 05/17/17 at 14:16; Status DC Active Scripts Active Coumadin (Warfarin Sodium) 4 Mg Tablet 4 Mg PO DAILY16 30 Days Flomax (Tamsulosin Hcl) 0.4 Mg Cap.er.24h 0.8 Mg PO QHS 30 Days Pantoprazole Sodium 40 Mg Tablet.dr 40 Mg PO DAILYAC 30 Days Reported Doxycycline Hyclate 100 Mg Capsule 1 Cap PO BID Colace (Docusate Sodium) 100 Mg Capsule 1 Cap PO PRN DAILY PRN Lipitor (Atorvastatin Calcium) 40 Mg Tablet 1 Tab PO QHS Wellbutrin Xl (Bupropion Hcl) 150 Mg Tab.er.24h 1 Tab PO DAILYWBKFT Remeron (Mirtazapine) 15 Mg Tablet 0.5 Tab PO QHS Metoprolol Tartrate 25 Mg Tablet 1 Tab PO BID Hydrocodone-Apap 5-325 (Hydrocodone Bit/Acetaminophen) 1 Each Tablet 1 Tab PO PRN Q4HRS PRN Mucinex (Guaifenesin) 600 Mg Tablet.er 1 Tab PO PRN BID PRN Finasteride 5 Mg Tablet 1 Tab PO DAILY Symbicort 160-4.5 Mcg Inhaler (Budesonide/Formoterol Fumarate) 10.2 Gm Hfa.aer.ad 2 Puff IH BID Aspirin 81 Mg Tab.chew 81 Mg PO DAILY Amiodarone Hcl 200 Mg Tablet 1 Tab PO DAILY Albuterol Sulfate Neb Soln (Albuterol Sulfate) 0.63 Mg/3 Ml Vial.neb 1 Vial NEB QID Tylenol (Acetaminophen) 325 Mg Tablet 1 Tab PO PRN Q4HRS JESSICA DOVER DO May 23, 2017 12:56
== END 2017-05-17 10:25 | disposition expired | DRG 177 ==
LOC: ICU 13:00
PROVIDERS: ADMIT Family Medicine; ATTEND Family Medicine
DX: J69.0 Pneumonitis due to inhalation of food and vomit (principal); J96.21 Acute and chronic respiratory failure with hypoxia; E43 Unspecified severe protein-calorie malnutrition; J44.9 Chronic obstructive pulmonary disease, unspecified; D64.9 Anemia, unspecified; I48.0 Paroxysmal atrial fibrillation; Z68.1 Body mass index [BMI] 19.9 or less, adult; E78.2 Mixed hyperlipidemia; N32.0 Bladder-neck obstruction; I10 Essential (primary) hypertension; F17.210 Nicotine dependence, cigarettes, uncomplicated; E83.42 Hypomagnesemia; N40.0 Benign prostatic hyperplasia without lower urinary tract symptoms; I25.10 Atherosclerotic heart disease of native coronary artery without angina pectoris; Z95.1 Presence of aortocoronary bypass graft; Z95.5 Presence of coronary angioplasty implant and graft; Z98.42 Cataract extraction status, left eye; Z79.01 Long term (current) use of anticoagulants; Z98.41 Cataract extraction status, right eye; Z83.3 Family history of diabetes mellitus; Z82.49 Family history of ischemic heart disease and other diseases of the circulatory system
CPT/HCPCS: 94640; J7613; J7626; 97110; 97530